=== PATIENT | female | born 1950 | race Caucasian/White ===

== ENCOUNTER → 2017-05-28 | Outpatient (CLI) | payer MEDICARE, OTHER ==
--- NOTE | 2017-05-28 11:17 | Diagnostic Imaging Report ---
INDICATION: History of thoracic spine fracture for screening. FINDINGS: There is osteoporotic density in the lumbar spine with an abnormally diminished T score value of -0.5. Osteoporotic densities in the bilateral hips are present, both -3.3. T score values. IMPRESSION: There is extensive osteoporosis with a significant increased fracture risk in this patient. Treatment and followup advised. Dictated by: Dictated on workstation # [id number]
== END ==
LOC: RAD 09:30
PROVIDERS: ATTEND Family Medicine
DX: M81.0 Age-related osteoporosis without current pathological fracture (principal); Z87.81 Personal history of (healed) traumatic fracture
CPT/HCPCS: 77080

== ENCOUNTER → 2017-06-15 | Outpatient (CLI) | payer MEDICARE, OTHER ==
--- NOTE | 2017-06-15 13:35 | Diagnostic Imaging Report ---
INDICATION: Back pain. FINDINGS: There is an age indeterminate compression fracture in the mid to upper thoracic spine. Endplates appear relatively sclerotic suggesting this is chronic. A few other mild compression fractures, also age indeterminate. The visualized lungs are clear. IMPRESSION: Several age-indeterminate compression fractures in the thoracic spine. If there is high clinical concern, these may be acute. Further evaluation with MRI should be considered. Dictated by: Dictated on workstation # [id number]
--- NOTE | 2017-06-15 13:55 | Diagnostic Imaging Report ---
Indication: Right-sided rib pain. Time of exam: 1:22 PM 2 views of right-sided ribs were obtained. No displaced rib fracture is detected. No parenchymal contusion, effusion or pneumothorax is identified. Impression: No acute feature identified. Dictated by: Dictated on workstation # [id number]
== END ==
LOC: RAD 12:49
PROVIDERS: ATTEND Nurse Practitioner Family
DX: R07.81 Pleurodynia (principal); M54.9 Dorsalgia, unspecified
CPT/HCPCS: 71100; 72070

== ENCOUNTER 2018-05-16 07:05 | Observation (INO) | payer MEDICARE ==
[~2018-05-16] VITALS: Ht 167.6 cm; Wt 58.2 kg
--- OUTSIDE RECORDS SUMMARY | 2018-05-16 07:10 | XMS REPORT ---
Author Author RESHMA DUARTE Organization [facility] Address [address] [place] [address] Care Team Providers Care Recreational Therapy Aide Name Role Phone RESHMA DUARTE Unavailable PROBLEMS Type Condition ICD9-CM Code EAI49-OY Code Onset Dates Condition Status SNOMED Code Problem Hyperlipidemia E78.5 Active 12655748 Problem Vitamin D deficiency E55.9 Active 19171987 Problem Closed fracture of fourth thoracic vertebra, unspecified fracture morphology, initial encounter S22.049A Active 57988886837619211 Problem Essential hypertension I10 Active 73086224 Problem Gastroesophageal reflux disease, esophagitis presence not specified K21.9 Active 358263741 Problem Age-related osteoporosis without current pathological fracture M81.0 Active 10571512 ALLERGIES Substance Reaction Event Type Date Status TraMADol HCl ER nausea Drug Allergy Jan, Active Fosamax throat swelling/trouble swallowing Drug Allergy Jan, Active ENCOUNTERS Encounter Location Date Diagnosis [facility] [address] [address] 2018 Compression fracture of body of thoracic vertebra S22.000A [facility] [id number] [place] [address]13- [address] 11 Jan, 2018 Essential hypertension I10 ; Age-related osteoporosis without current pathological fracture M81.0 ; Gastroesophageal reflux disease, esophagitis presence not specified K21.9 ; Hyperlipidemia E78.5 ; Vitamin D deficiency E55.9 and Compression fracture of body of thoracic vertebra S22.000A [facility] [address] [address] Dec, Essential hypertension I10 [facility] [id number] [place] [address] 20730- 4230 Dec, [facility] [address] [id number] Oct, Encounter for dental examination Z01.20 [facility] [id number] [place] [address] 91129- 1684 Oct, [facility] [id number] [place] [address] 76683- 6780 Oct, Irritant contact dermatitis, unspecified trigger L24.9 [facility] [address] [address] Aug, Irritant contact dermatitis, unspecified trigger L24.9 ; Age -related osteoporosis with current pathological fracture with routine healing, subsequent encounter M80.00XD and Gastroesophageal reflux disease, esophagitis presence not specified K21.9 [facility] [id number] [place] [address] 55587- 1092 Jul, Other fatigue R53.83 ; Age-related osteoporosis without current pathological fracture M81.0 and Vitamin D deficiency E55.9 [facility] [address] [place] [address] 60373- 9768 Jul, Other fatigue R53.83 ; Age-related osteoporosis without current pathological fracture M81.0 and Vitamin D deficiency E55.9 [facility] [address] [place] [address] 10767- 8627 Jun, Age-related osteoporosis without current pathological fracture M81.0 [facility] [id number] [place] [address] 02038- 2105 May, Age-related osteoporosis without current pathological fracture M81.0 [facility] [id number] [place] [address] 16116- 9157 May, [facility] [id number] [place] [address] 36213- 7238 May, Closed fracture of fourth thoracic vertebra, unspecified fracture morphology, initial encounter S22.049A [facility] [address] 16455- 6298 May, Acute bilateral thoracic back pain M54.6 [facility] [address] [address] Apr, Acute bilateral thoracic back pain M54.6 [facility] [address] [address] Aug, Essential hypertension I10 and Fatigue, unspecified type R53.83 [facility] [address] [address] Aug, [facility] [address] [address] Jul, [facility] [id number] [place] [id number] Aug, Dental examination Z01.20 [facility] [id number] [place] [id number] Jul, Encounter for dental examination Z01.20 IMMUNIZATIONS No Known Immunizations SOCIAL HISTORY Never Assessed REASON FOR VISIT Blood Pressure fu -- michael hoff PLAN OF CARE Activity Details Follow Up 3 Months with Kermit stokes Reason: Future/Pending Procedure ROUTINE VENIPUNCTURE VITAL SIGNS Height 67 in 2018-01-26 Weight 120.0 lbs 2018-01-26 Temperature 97.2 degrees Fahrenheit 2018-01-26 Heart Rate 86 bpm 2018-01-26 Respiratory Rate 20 2018-01-26 BMI 18.79 kg/m2 2018-01-26 Blood pressure systolic 130 mmHg 2018-01-26 Blood pressure diastolic 88 mmHg 2018-01-26 MEDICATIONS Medication Instructions Dosage Frequency Start Date End Date Duration Status Calcium + D3 Active Aspirin Active Hydrocodone-Acetaminophen 5-325 MG Orally every 6 hrs 1 tablet as needed 6h 11 Jan, 2018 Active Triamcinolone Acetonide 0.1 % Externally Twice a day 1 application to affected area 12h 18 Aug, 2017 14 days Active Forteo Active Vitamin D Active Protonix 20 mg Orally Once a day 1 tablet 24h 30 Active RESULTS No Results PROCEDURES Procedure Date Ordered Result Body Site LAB NOT BILLED BY [facility] Jan 26, 2018 VENIPUNCT, ROUTINE* Jan 26, 2018 INSTRUCTIONS MEDICATIONS ADMINISTERED No Known Medications MEDICAL (GENERAL) HISTORY Type Description Date Medical History hypertension Medical History Hemangioma on Liver- Previously been on Creon rx'd by Dr Harrison Medical History Hx of MRSA Surgical History cholecystectomy 2008 Surgical History Open reduction of left hand fracture- metal plate and screws placed 2009 Surgical History Open reduction of right leg fracture 1987 Hospitalization History Surgery(s)/Childbirth(s) only
--- OUTSIDE RECORDS SUMMARY | 2018-05-16 07:10 | XMS REPORT ---
Author Author JIE BAARJAS [facility] Address [address] [place] [address] Care Team Providers Care Plate Finisher Name Role Phone JIE BARAJAS Unavailable PROBLEMS Type Condition ICD9-CM Code GMY45-XN Code Onset Dates Condition Status SNOMED Code Problem Vitamin D deficiency E55.9 Active 30192606 Problem Gastroesophageal reflux disease, esophagitis presence not specified K21.9 Active 136644281 Problem Essential hypertension I10 Active 46640379 Problem Age-related osteoporosis without current pathological fracture M81.0 Active 40053655 Problem Closed fracture of fourth thoracic vertebra, unspecified fracture morphology, initial encounter S22.049A Active 99020588418366347 ALLERGIES Substance Reaction Event Type Date Status TraMADol HCl ER nausea Drug Allergy Oct, Active Fosamax throat swelling/trouble swallowing Drug Allergy Oct, Active ENCOUNTERS Encounter Location Date Diagnosis [facility] [id number] [place] [address]60- [address]447 Jan, [facility] [id number] [place] [address] 21918- 8845 Dec, Essential hypertension I10 [facility] [id number] [place] [address] 28418- 9294 Dec, [facility] [id number] [place] [phone] Oct, Encounter for dental examination Z01.20 [facility] [id number] [place] [address] 41302- 6103 Oct, [facility] [id number] [place] [address] 51561- 8386 Oct, Irritant contact dermatitis, unspecified trigger L24.9 [facility] [address] [address] Aug, Irritant contact dermatitis, unspecified trigger L24.9 ; Age -related osteoporosis with current pathological fracture with routine healing, subsequent encounter M80.00XD and Gastroesophageal reflux disease, esophagitis presence not specified K21.9 [facility] [id number] [place] [address] 88483- 4340 Jul, Other fatigue R53.83 ; Age-related osteoporosis without current pathological fracture M81.0 and Vitamin D deficiency E55.9 [facility] [id number] [place] [address] 13132- 1483 Jul, Other fatigue R53.83 ; Age-related osteoporosis without current pathological fracture M81.0 and Vitamin D deficiency E55.9 [facility] [id number] [place] [address] 74710- 7043 Jun, Age-related osteoporosis without current pathological fracture M81.0 [facility] [id number] [place] [address] 57477- 3660 May, Age-related osteoporosis without current pathological fracture M81.0 [facility] [id number] [place] [address] 01267- 9714 May, [facility] [address] [address] May, Closed fracture of fourth thoracic vertebra, unspecified fracture morphology, initial encounter S22.049A [facility] [id number] [place] [address] 83425- 6640 May, Acute bilateral thoracic back pain M54.6 [facility] [id number] [place] [address] 07715 -3388 Apr, Acute bilateral thoracic back pain M54.6 [facility] [address] 47048- 38[address] Aug, Essential hypertension I10 and Fatigue, unspecified type R53.83 [facility] [address] 284[address]- 0747 Aug, [facility] [address] [id number] [place] [address] Jul, [facility] [address] [id number] [id number] Aug, Dental examination Z01.20 [facility] [address] [id number] [place] [id number] Jul, Encounter for dental examination Z01.20 IMMUNIZATIONS No Known Immunizations SOCIAL HISTORY Never Assessed REASON FOR VISIT prophy PLAN OF CARE Activity Details Follow Up 6 Months Reason:Recall VITAL SIGNS Blood pressure systolic 144 mmHg 2017-11-10 Blood pressure diastolic 99 mmHg 2017-11-10 MEDICATIONS Medication Instructions Dosage Frequency Start Date End Date Duration Status Protonix 20 mg Orally Once a day 1 tablet 24h 30 Active Excedrin Migraine 250-250-65 MG Orally every 6 hrs 2 tablets as needed 6h Not-Taking Calcium + D3 Active Triamcinolone Acetonide 0.1 % Externally Twice a day 1 application to affected area 12h 18 Aug, 2017 14 days Active Forteo Active Aspirin Active Vitamin D Active Probiotic 3 tabs Active Omeprazole Active Nexium 20 MG Orally Once a day 1 capsule 24h Not-Taking RESULTS No Results PROCEDURES Procedure Date Ordered Result Body Site PERIODIC ORAL EXAMINATION November 10, 2017 PROPHYLAXIS - ADULT November 10, 2017 TOPICAL FLUORIDE VARNISH November 10, 2017 INSTRUCTIONS MEDICATIONS ADMINISTERED No Known Medications MEDICAL [...]
--- OUTSIDE RECORDS SUMMARY | 2018-05-16 07:10 | XMS REPORT ---
Author Author RESHMA DUARTE Organization [facility] Address [address] [place] [address] Care Team Providers Care Sixth Grade Teacher Name Role Phone RESHMA DUARTE Unavailable PROBLEMS Type Condition ICD9-CM Code ERC09-TA Code Onset Dates Condition Status SNOMED Code Problem Hyperlipidemia E78.5 Active 17423697 Problem Vitamin D deficiency E55.9 Active 61748728 Problem Closed fracture of fourth thoracic vertebra, unspecified fracture morphology, initial encounter S22.049A Active 75029439713713050 Problem Essential hypertension I10 Active 34857587 Problem Gastroesophageal reflux disease, esophagitis presence not specified K21.9 Active 134067553 Problem Age-related osteoporosis without current pathological fracture M81.0 Active 12152966 ALLERGIES No Information ENCOUNTERS Encounter Location Date Diagnosis [facility] [id number] [place] [address]53- [address]160 2018 Compression fracture of body of thoracic vertebra S22.000A [facility] [address] [address]- [address] 11 Jan, 2018 Essential hypertension I10 ; Age-related osteoporosis without current pathological fracture M81.0 ; Gastroesophageal reflux disease, esophagitis presence not specified K21.9 ; Hyperlipidemia E78.5 ; Vitamin D deficiency E55.9 and Compression fracture of body of thoracic vertebra S22.000A [facility] [id number] [place] [address] 65650- 7938 Dec, Essential hypertension I10 [facility] [address] [address] Dec, [facility] [id number] [place] [phone] Oct, Encounter for dental examination Z01.20 [facility] [address] [place] [address] 6[address] Oct, [facility] [id number] [place] [address] 69768- 3901 Oct, Irritant contact dermatitis, unspecified trigger L24.9 [facility] [id number] [place] [address] 86162- 9668 Aug, Irritant contact dermatitis, unspecified trigger L24.9 ; Age -related osteoporosis with current pathological fracture with routine healing, subsequent encounter M80.00XD and Gastroesophageal reflux disease, esophagitis presence not specified K21.9 [facility] [address] [address]- [address] Jul, Other fatigue R53.83 ; Age-related osteoporosis without current pathological fracture M81.0 and Vitamin D deficiency E55.9 [facility] [id number] [place] [address] 53076- 1799 Jul, Other fatigue R53.83 ; Age-related osteoporosis without current pathological fracture M81.0 and Vitamin D deficiency E55.9 [facility] [id number] [place] [address] 84322- 6742 Jun, Age-related osteoporosis without current pathological fracture M81.0 [facility] [id number] [place] [address] 07754- 7714 May, Age-related osteoporosis without current pathological fracture M81.0 [facility] [id number] [place] [address] 73746- 9275 May, [facility] [id number] [place] [address] 70909- 0603 May, Closed fracture of fourth thoracic vertebra, unspecified fracture morphology, initial encounter S22.049A [place] [address] 45390- 1272 May, Acute bilateral thoracic back pain M54.6 [facility] [id number] [place] [address] 78765 -8766 Apr, Acute bilateral thoracic back pain M54.6 [facility] [address], [place] [address] Aug, Essential hypertension I10 and Fatigue, unspecified type R53.83 [facility] [address], [place] [address] 2546 Aug, [facility] [address] [place] [address] 92808- [address]77 Jul, [facility] [address] [id number] Aug, Dental examination Z01.20 [facility] [id number] [place] [id number] Jul, Encounter for dental examination Z01.20 IMMUNIZATIONS No Known Immunizations SOCIAL HISTORY Never Assessed REASON FOR VISIT Requests return call PLAN OF CARE VITAL SIGNS MEDICATIONS Unknown Medications RESULTS No Results PROCEDURES No Known procedures INSTRUCTIONS MEDICATIONS ADMINISTERED No Known Medications MEDICAL (GENERAL) HISTORY Type Description Date Medical History hypertension Medical History Hemangioma on Liver- Previously been on Creon rx'd by Dr Harrison Medical History Hx of MRSA Surgical History cholecystectomy 2008 Surgical History Open reduction of left hand fracture- metal plate and screws placed 2009 Surgical History Open reduction of right leg fracture 1988 Hospitalization History Surgery(s)/Childbirth(s) only
--- OUTSIDE RECORDS SUMMARY | 2018-05-16 07:10 | XMS REPORT ---
Author Author RESHMA DUARTE Organization [facility] Address [address] [place] [address] Care Team Providers Care District Sales Leader Name Role Phone RESHMA DUARTE Unavailable PROBLEMS Type Condition ICD9-CM Code XPP85-MP Code Onset Dates Condition Status SNOMED Code Problem Hyperlipidemia E78.5 Active 28876603 Problem Vitamin D deficiency E55.9 Active 12403131 Problem Closed fracture of fourth thoracic vertebra, unspecified fracture morphology, initial encounter S22.049A Active 12013640133884367 Problem Essential hypertension I10 Active 38724056 Problem Gastroesophageal reflux disease, esophagitis presence not specified K21.9 Active 094460519 Problem Age-related osteoporosis without current pathological fracture M81.0 Active 25482581 ALLERGIES No Information ENCOUNTERS Encounter Location Date Diagnosis [facility] [id number] [place] [address] 85242- 1676 2018 Compression fracture of body of thoracic vertebra S22.000A [facility] [address] [address]- [address] 11 Jan, 2018 Essential hypertension I10 ; Age-related osteoporosis without current pathological fracture M81.0 ; Gastroesophageal reflux disease, esophagitis presence not specified K21.9 ; Hyperlipidemia E78.5 ; Vitamin D deficiency E55.9 and Compression fracture of body of thoracic vertebra S22.000A [facility] [id number] [place] [address] 36621- 6540 Dec, Essential hypertension I10 [facility] [address] 295[address]- 9[address] Dec, [facility] [id number] [place] [phone] Oct, Encounter for dental examination Z01.20 [facility] [address] [place] [address] Oct, [facility] [id number] [place] [address] 59555- 2973 Oct, Irritant contact dermatitis, unspecified trigger L24.9 [facility] [id number] [place] [address] 38213- 3488 Aug, Irritant contact dermatitis, unspecified trigger L24.9 ; Age -related osteoporosis with current pathological fracture with routine healing, subsequent encounter M80.00XD and Gastroesophageal reflux disease, esophagitis presence not specified K21.9 [place] [address] 80119- 9543 Jul, Other fatigue R53.83 ; Age-related osteoporosis without current pathological fracture M81.0 and Vitamin D deficiency E55.9 [facility] [facility] [id number] [place] [address]34- 1946 Jul, Other fatigue R53.83 ; Age-related osteoporosis without current pathological fracture M81.0 and Vitamin D deficiency E55.9 [facility] [id number] [place] [address] 00369- 5697 Jun, Age-related osteoporosis without current pathological fracture M81.0 [facility] [id number] [place] [address] 41404- 5643 May, Age-related osteoporosis without current pathological fracture M81.0 [place] [id number] [place] [address] 82666- 7651 May, [facility] [id number] [place] [address] 49560- 4051 May, Closed fracture of fourth thoracic vertebra, unspecified fracture morphology, initial encounter S22.049A [place] [address] 78555- 1413 May, Acute bilateral thoracic back pain M54.6 [facility] [id number] [place] [address] 12104 -3926 Apr, Acute bilateral thoracic back pain M54.6 [facility] [address] [address] Aug, Essential hypertension I10 and Fatigue, unspecified type R53.83 [facility] [address], [place] [address]16 Aug, [facility] [address] [place] [address] 98027- 6368 Jul, [facility] [address] [phone] Aug, Dental examination Z01.20 [facility] [id number] [place] [address] [id number] Jul, Encounter for dental examination Z01.20 IMMUNIZATIONS No Known Immunizations SOCIAL HISTORY Never Assessed REASON FOR VISIT Blood pressure check -- michael hoff PLAN OF CARE VITAL SIGNS Height 67 in 2018-01-13 Blood pressure systolic 142 mmHg 2018-01-13 Blood pressure diastolic 82 mmHg 2018-01-13 MEDICATIONS Unknown Medications RESULTS No Results PROCEDURES [...]
--- OUTSIDE RECORDS SUMMARY | 2018-05-16 07:11 | XMS REPORT ---
Author Author RESHMA DUARTE Organization [facility] Address [address] [place] [address] Care Team Providers Care Camper Assembler Name Role Phone RESHMA DUARTE Unavailable PROBLEMS Type Condition ICD9-CM Code PDQ78-XF Code Onset Dates Condition Status SNOMED Code Problem Vitamin D deficiency E55.9 Active 54598219 Problem Gastroesophageal reflux disease, esophagitis presence not specified K21.9 Active 347234634 Problem Essential hypertension I10 Active 44122582 Problem Age-related osteoporosis without current pathological fracture M81.0 Active 28762987 Problem Closed fracture of fourth thoracic vertebra, unspecified fracture morphology, initial encounter S22.049A Active [id number] ALLERGIES No Information ENCOUNTERS Encounter Location Date Diagnosis [facility] [address] [id number] Oct, Encounter for dental examination Z01.20 [place] [address] [address] Oct, [place] [address] [address] Oct, Irritant contact dermatitis, unspecified trigger L24.9 [place] [address] [place] [id number] [place] [address]66- 2778 Aug, Irritant contact dermatitis, unspecified trigger L24.9 ; Age -related osteoporosis with current pathological fracture with routine healing, subsequent encounter M80.00XD and Gastroesophageal reflux disease, esophagitis presence not specified K21.9 [facility] [address] [address]- [address] Jul, Other fatigue R53.83 ; Age-related osteoporosis without current pathological fracture M81.0 and Vitamin D deficiency E55.9 [place] [address] [place] [address] Jul, Other fatigue R53.83 ; Age-related osteoporosis without current pathological fracture M81.0 and Vitamin D deficiency E55.9 [facility] [address] [place] [id number] [place] [phone] Jun, Age-related osteoporosis without current pathological fracture M81.0 [facility] [address] [address]- 2341 May, Age-related osteoporosis without current pathological fracture M81.0 [place] [address] [address] May, [place] [address] 635747- 7438 May, Closed fracture of fourth thoracic vertebra, unspecified fracture morphology, initial encounter S22.049A [place] [address] 96253- 7623 May, Acute bilateral thoracic back pain M54.6 [facility] [address] [place] [id number] [place] [address]96 Apr, Acute bilateral thoracic back pain M54.6 [facility] [address] [place] [id number] [place] [address] 20761- 9755 Aug, Essential hypertension I10 and Fatigue, unspecified type R53.83 [facility] [address] [place] [id number] [place] [address] 64425- 1361 Aug, [place] [address] [place] [id number] [place] [address] 53154- 8178 Jul, [facility] [address] [id number] Aug, Dental examination Z01.20 [facility] [address] [place] [id number] [place] [address] [id number] Jul, Encounter for dental examination Z01.20 IMMUNIZATIONS No Known Immunizations SOCIAL HISTORY Never Assessed REASON FOR VISIT Refill request PLAN OF CARE VITAL SIGNS MEDICATIONS Unknown [...]
--- OUTSIDE RECORDS SUMMARY | 2018-05-16 07:11 | XMS REPORT ---
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 Name Role Phone RESHMA DUARTE Unavailable PROBLEMS Type Condition ICD9-CM Code PVN38-YK Code Onset Dates Condition Status SNOMED Code Problem Vitamin D deficiency E55.9 Active 73270733 Problem Gastroesophageal reflux disease, esophagitis presence not specified K21.9 Active 600727135 Problem Essential hypertension I10 Active 09615278 Problem Age-related osteoporosis without current pathological fracture M81.0 Active 44173293 Problem Closed fracture of fourth thoracic vertebra, unspecified fracture morphology, initial encounter S22.049A Active [id number] ALLERGIES No Information ENCOUNTERS Encounter Location Date Diagnosis [facility] [address] [id number] Oct, Encounter for dental examination Z01.20 [place] [address] [address]- [address]369 Oct, [place] [address] 7[address]- 7867 Oct, Irritant contact dermatitis, unspecified trigger L24.9 [place] [address] [place] [id number] [place] [address]27- 0988 Aug, Irritant contact dermatitis, unspecified trigger L24.9 ; Age -related osteoporosis with current pathological fracture with routine healing, subsequent encounter M80.00XD and Gastroesophageal reflux disease, esophagitis presence not specified K21.9 [facility] [address] [address]- 4[address] Jul, Other fatigue R53.83 ; Age-related osteoporosis without current pathological fracture M81.0 and Vitamin D deficiency E55.9 [place] [address] [place] [address] 5349 Jul, Other fatigue R53.83 ; Age-related osteoporosis without current pathological fracture M81.0 and Vitamin D deficiency E55.9 [facility] [address] [place] [phone]- 7848 Jun, Age-related osteoporosis without current pathological fracture M81.0 [facility] [address] 6[address]41- 1152 May, Age-related osteoporosis without current pathological fracture M81.0 [place] [address] 97[address]- 4207 May, [place] [address] 085772- 5919 May, Closed fracture of fourth thoracic vertebra, unspecified fracture morphology, initial encounter S22.049A [place] [address] 72[address]- 0718 May, Acute bilateral thoracic back pain M54.6 [facility] [address] [place] [id number] [place] [address]3072 -8926 Apr, Acute bilateral thoracic back pain M54.6 [facility] [address] [place] [id number] [place] [address] 00729- 9971 Aug, Essential hypertension I10 and Fatigue, unspecified type R53.83 [facility] [address] [place] [id number] [place] [address] 13378- 9403 Aug, [facility] [address] [place] [id number] [place] [address] 50042- 1489 Jul, [facility] [address] [id number] Aug, Dental examination Z01.20 [facility] [address] [place] [id number] [place] [address] [phone] Jul, Encounter for dental examination Z01.20 IMMUNIZATIONS No Known Immunizations SOCIAL HISTORY Never Assessed REASON FOR VISIT Lab (walk-in) PLAN OF CARE VITAL SIGNS MEDICATIONS Unknown Medications RESULTS No Results PROCEDURES Procedure Date Ordered Result Body Site ASSAY OF PARATHORMONE August 07, 2017 COMPREHEN METABOLIC PANEL August 07, 2017 ASSAY THYROID STIM HORMONE August 07, 2017 COMPLETE CBC W/AUTO DIFF WBC August 07, 2017 ASSAY OF VITAMIN D August 07, 2017 INSTRUCTIONS MEDICATIONS ADMINISTERED No Known Medications [...]
--- OUTSIDE RECORDS SUMMARY | 2018-05-16 07:11 | XMS REPORT ---
Author Author RESHMA DUARTE Organization [facility] Address [address] [place] [address] Care Team Providers Care Svp Operations Name Role Phone RESHMA DUARTE Unavailable PROBLEMS Type Condition ICD9-CM Code SDC75-SW Code Onset Dates Condition Status SNOMED Code Problem Vitamin D deficiency E55.9 Active 44367318 Problem Gastroesophageal reflux disease, esophagitis presence not specified K21.9 Active 980960173 Problem Essential hypertension I10 Active 35619688 Problem Age-related osteoporosis without current pathological fracture M81.0 Active 78351243 Problem Closed fracture of fourth thoracic vertebra, unspecified fracture morphology, initial encounter S22.049A Active [id number] ALLERGIES Substance Reaction Event Type Date Status TraMADol HCl ER nausea Drug Allergy May, Active ENCOUNTERS Encounter Location Date Diagnosis [facility] [address] [place] [address] [phone] Oct, [place] [address] [address] Oct, [place] [address] [place] [id number] [place] [address] 71198- 9710 Oct, Irritant contact dermatitis, unspecified trigger L24.9 [facility] [place] [address] [place] [id number] [place] [address] 26709- 1516 Aug, Irritant contact dermatitis, unspecified trigger L24.9 ; Age -related osteoporosis with current pathological fracture with routine healing, subsequent encounter M80.00XD and Gastroesophageal reflux disease, esophagitis presence not specified K21.9 [facility] [place] [address] [place] [id number] [place] [address] 70799- 0037 Jul, Other fatigue R53.83 ; Age-related osteoporosis without current pathological fracture M81.0 and Vitamin D deficiency E55.9 [place] [address] [place] [id number] [place] [address] 49560- 1613 Jul, Other fatigue R53.83 ; Age-related osteoporosis without current pathological fracture M81.0 and Vitamin D deficiency E55.9 [facility] [place] [address] [place] [id number] [place] [address] 54031- 1071 Jun, Age-related osteoporosis without current pathological fracture M81.0 [facility] [place] [address] [place] [id number] [place] [address] 68125- 7833 May, Age-related osteoporosis without current pathological fracture M81.0 [place] [address] [place] [id number] [place] [address] 387316- 5206 May, [place] [address] [place] [id number] [place] [address] 856037- 6938 May, Closed fracture of fourth thoracic vertebra, unspecified fracture morphology, initial encounter S22.049A [place] [address] [place] [id number] [place] [address] 45035- 5440 May, Acute bilateral thoracic back pain M54.6 [facility] [address] [place] [id number] [place] [address] 43387 -[phone] Apr, Acute bilateral thoracic back pain M54.6 [facility] [place] [address] [place] [id number] [place] [address] 27001- 2534 Aug, Essential hypertension I10 and Fatigue, unspecified type R53.83 [facility] [place] [address] [place] [id number] [place] [address] 60473- 6295 Aug, [place] [address] [place] [id number] [place] [address] 88261- 7647 Jul, [facility] [address] [place] [id number] [place] [address] [phone] Aug, Dental examination Z01.20 [facility] [address] [place] [id number] [place] [address] [phone] Jul, Encounter for dental examination Z01.20 IMMUNIZATIONS No Known Immunizations SOCIAL HISTORY Never Assessed REASON FOR VISIT Back pain, Was seen in walk in last week for this. No dysuria/frequency/odor to urine. Was given cyclobenzaprine which doesn't touch the pain. Also taking ibuprofen 800mg. This pain started randomly 05/04. Works at [employer]. - WILLY Nuñez PLAN OF CARE Activity Details Follow Up 6-8 Weeks with [facility] if not improving Reason: VITAL SIGNS Height 67 in 2017-05-19 Weight 125 lbs 2017-05-19 Temperature 97.8 degrees Fahrenheit 2017-05-19 Heart Rate 78 bpm 2017-05-19 Respiratory Rate 18 2017-05-19 BMI 19.58 kg/m2 2017-05-19 Blood pressure systolic 142 mmHg 2017-05-19 Blood pressure diastolic 84 mmHg 2017-05-19 MEDICATIONS Medication Instructions Dosage Frequency Start Date End Date Duration Status Probiotic 3 tabs Active Cyclobenzaprine HCl 10 MG Orally Three times a day 1 tablet as needed 8h Apr, May, 5 days Active PredniSONE 50 mg Orally Once a day 1 tablet 24h May, May, 05 days Active Nexium 20 MG Orally Once a day 1 capsule 24h Active Excedrin Migraine 250-250-65 MG Orally every 6 hrs 2 tablets as needed 6h Active RESULTS Name Result Date Reference Range UA LONG DIP (IN HOUSE) 2017-05-19 Lot # [id number] Exp date 01/2018 Clarity clear Color yellow Odor no GLU negative RACHEL negative KET negative SG 1.005 BLO 2+ pH 5.5 Protein negative URO 0.2 NIT negative MARK negative Lot # Exp date Xray : Spine, Thoracic 2 views (IN HOUSE) 2017-05-19 PROCEDURES Procedure Date Ordered Result Body Site X-RAY EXAM OF THORACIC SPINE May 19, 2017 URINALYSIS, AUTO, W/O SCOPE May 19, 2017 INSTRUCTIONS MEDICATIONS ADMINISTERED No Known Medications [...]
--- OUTSIDE RECORDS SUMMARY | 2018-05-16 07:11 | XMS REPORT ---
Author Author RESHMA DUARTE Organization [facility] Address [address] [place] [address] Care Team Providers Care Window Covering Sales Consultant Name Role Phone RESHMA DUARTE Unavailable PROBLEMS Type Condition ICD9-CM Code NMW42-ZQ Code Onset Dates Condition Status SNOMED Code Problem Vitamin D deficiency E55.9 Active 88120967 Problem Gastroesophageal reflux disease, esophagitis presence not specified K21.9 Active 732790029 Problem Essential hypertension I10 Active 18096128 Problem Age-related osteoporosis without current pathological fracture M81.0 Active 81529324 Problem Closed fracture of fourth thoracic vertebra, unspecified fracture morphology, initial encounter S22.049A Active [id number] ALLERGIES No Information ENCOUNTERS Encounter Location Date Diagnosis [facility] [address] [id number] Oct, [facility] [address] [address]- [address]85 Oct, [facility] [address] 42531- 7335 Oct, Irritant contact dermatitis, unspecified trigger L24.9 [facility] [address] 74398- 6701 Aug, Irritant contact dermatitis, unspecified trigger L24.9 ; Age -related osteoporosis with current pathological fracture with routine healing, subsequent encounter M80.00XD and Gastroesophageal reflux disease, esophagitis presence not specified K21.9 [facility] [address] [address]- 7915 Jul, Other fatigue R53.83 ; Age-related osteoporosis without current pathological fracture M81.0 and Vitamin D deficiency E55.9 [facility] [address] 09618- 7853 Jul, Other fatigue R53.83 ; Age-related osteoporosis without current pathological fracture M81.0 and Vitamin D deficiency E55.9 [facility] [address] 27588- 719 Jun, Age-related osteoporosis without current pathological fracture M81.0 [place] [address] 9[address]39- 5232 May, Age-related osteoporosis without current pathological fracture M81.0 [place] [address] 20865- 6012 May, [place] [address] 23894- 3115 May, Closed fracture of fourth thoracic vertebra, unspecified fracture morphology, initial encounter S22.049A [place] [address] 44318- 7935 May, Acute bilateral thoracic back pain M54.6 [facility] [address] [address] -[address]11 Apr, Acute bilateral thoracic back pain M54.6 [facility] [address] 19713- 9922 Aug, Essential hypertension I10 and Fatigue, unspecified type R53.83 [place] [address] 00660- 0551 Aug, [place] [address] 18882- 1079 Jul, [facility] [address] [id number] Aug, Dental examination Z01.20 [facility] [address] [id number] Jul, Encounter for dental examination Z01.20 IMMUNIZATIONS No Known Immunizations SOCIAL HISTORY Never Assessed REASON FOR VISIT requesting a returned call PLAN OF CARE VITAL SIGNS MEDICATIONS [...]
--- OUTSIDE RECORDS SUMMARY | 2018-05-16 07:11 | XMS REPORT ---
Author Author RESHMA DUARTE Organization [facility] Address [address] [place] [address] Care Team Providers Care Gasket Maker Name Role Phone RESHMA DUARTE Unavailable PROBLEMS Type Condition ICD9-CM Code OTL64-JR Code Onset Dates Condition Status SNOMED Code Problem Vitamin D deficiency E55.9 Active 67468617 Problem Gastroesophageal reflux disease, esophagitis presence not specified K21.9 Active 249645871 Problem Essential hypertension I10 Active 18502111 Problem Age-related osteoporosis without current pathological fracture M81.0 Active 76932599 Problem Closed fracture of fourth thoracic vertebra, unspecified fracture morphology, initial encounter S22.049A Active [id number] ALLERGIES No Information ENCOUNTERS Encounter Location Date Diagnosis [facility] [address] [id number] Oct, Encounter for dental examination Z01.20 [place] [address] [address]- [address]779 Oct, [place] [address] 87860- 1388 Oct, Irritant contact dermatitis, unspecified trigger L24.9 [place] [address] [place] [id number] [place] [address] 26816- 1636 Aug, Irritant contact dermatitis, unspecified trigger L24.9 ; Age -related osteoporosis with current pathological fracture with routine healing, subsequent encounter M80.00XD and Gastroesophageal reflux disease, esophagitis presence not specified K21.9 [facility] [address] 8[address]34- 4388 Jul, Other fatigue R53.83 ; Age-related osteoporosis without current pathological fracture M81.0 and Vitamin D deficiency E55.9 [place] [address] [place] [address]- 5683 Jul, Other fatigue R53.83 ; Age-related osteoporosis without current pathological fracture M81.0 and Vitamin D deficiency E55.9 [facility] [address] [place] [id number]- 4857 Jun, Age-related osteoporosis without current pathological fracture M81.0 [facility] [address] 89479- 3261 May, Age-related osteoporosis without current pathological fracture M81.0 [place] [address] 24005- 1379 May, [place] [address] 057611- 2544 May, Closed fracture of fourth thoracic vertebra, unspecified fracture morphology, initial encounter S22.049A [place] [address] [address]- 1974 May, Acute bilateral thoracic back pain M54.6 [facility] [address] [place] [id number] [place] [address] 81621 -4053 Apr, Acute bilateral thoracic back pain M54.6 [facility] [address] [place] [id number] [place] [address] 02051- 8249 Aug, Essential hypertension I10 and Fatigue, unspecified type R53.83 [facility] [address] [place] [id number] [place] [address] 50706- 0209 Aug, [place] [address] [place] [id number] [place] [address] 94790- 8440 Jul, [facility] [address] [id number] Aug, Dental examination Z01.20 [facility] [address] [place] [id number] [place] [address] [phone] Jul, Encounter for dental examination Z01.20 IMMUNIZATIONS No Known Immunizations SOCIAL HISTORY Never Assessed REASON FOR VISIT labs PLAN OF CARE VITAL SIGNS MEDICATIONS Unknown [...]
--- OUTSIDE RECORDS SUMMARY | 2018-05-16 07:11 | XMS REPORT ---
Author Author RESHMA DUARTE Organization [facility] Address [address] [place] [address] Care Team Providers Care Suppression Crew Leader Name Role Phone RESHMA DUARTE Unavailable PROBLEMS Type Condition ICD9-CM Code ZDT92-JP Code Onset Dates Condition Status SNOMED Code Problem Vitamin D deficiency E55.9 Active 21523253 Problem Gastroesophageal reflux disease, esophagitis presence not specified K21.9 Active 867053752 Problem Essential hypertension I10 Active 76599914 Problem Age-related osteoporosis without current pathological fracture M81.0 Active 49250417 Problem Closed fracture of fourth thoracic vertebra, unspecified fracture morphology, initial encounter S22.049A Active [id number] ALLERGIES No Information ENCOUNTERS Encounter Location Date Diagnosis [facility] [address] [phone] Oct, [facility] [address] [address]- 1489 Oct, [facility] [address] 65949- 7824 Oct, Irritant contact dermatitis, unspecified trigger L24.9 [facility] [address] 13029- 6428 Aug, Irritant contact dermatitis, unspecified trigger L24.9 ; Age -related osteoporosis with current pathological fracture with routine healing, subsequent encounter M80.00XD and Gastroesophageal reflux disease, esophagitis presence not specified K21.9 [facility] [address] 56303- 7869 Jul, Other fatigue R53.83 ; Age-related osteoporosis without current pathological fracture M81.0 and Vitamin D deficiency E55.9 [facility] [address] 81601- 7082 Jul, Other fatigue R53.83 ; Age-related osteoporosis without current pathological fracture M81.0 and Vitamin D deficiency E55.9 [facility] [address] 49705- 334 Jun, Age-related osteoporosis without current pathological fracture M81.0 [place] [address] 07555- 7611 May, Age-related osteoporosis without current pathological fracture M81.0 [place] [address] 69883- 8384 May, [place] [address] 59020- 2636 May, Closed fracture of fourth thoracic vertebra, unspecified fracture morphology, initial encounter S22.049A [place] [address] 69587- 2654 May, Acute bilateral thoracic back pain M54.6 [facility] [address] 83826 -4081 Apr, Acute bilateral thoracic back pain M54.6 [facility] [address] 72736- 4370 Aug, Essential hypertension I10 and Fatigue, unspecified type R53.83 [place] [address] [place] [id number] [place] [address] 40138- 1941 Aug, [place] [address] 44555- 3861 Jul, [facility] [address] [place] [id number] [place] [address] [id number] Aug, Dental examination Z01.20 [facility] [address] [place] [id number] [place] [address] [phone] Jul, Encounter for dental examination Z01.20 IMMUNIZATIONS No Known Immunizations SOCIAL HISTORY Never Assessed REASON FOR VISIT dexa scan PLAN OF CARE VITAL SIGNS MEDICATIONS Unknown Medications RESULTS Name Result Date Reference Range DEXA 2017-05-28 PROCEDURES No Known procedures INSTRUCTIONS MEDICATIONS ADMINISTERED [...]
--- OUTSIDE RECORDS SUMMARY | 2018-05-16 07:11 | XMS REPORT ---
Author Author RESHMA DUARTE Organization [facility] Address [address] [place] [address] Care Team Providers Care Wound/Ostomy Clinical Nurse Specialist Name Role Phone RESHMA DUARTE Unavailable PROBLEMS Type Condition ICD9-CM Code MFZ53-WO Code Onset Dates Condition Status SNOMED Code Problem Vitamin D deficiency E55.9 Active 87393433 Problem Gastroesophageal reflux disease, esophagitis presence not specified K21.9 Active 389249050 Problem Essential hypertension I10 Active 65710417 Problem Age-related osteoporosis without current pathological fracture M81.0 Active 52533359 Problem Closed fracture of fourth thoracic vertebra, unspecified fracture morphology, initial encounter S22.049A Active [id number] ALLERGIES Substance Reaction Event Type Date Status TraMADol HCl ER nausea Drug Allergy May, Active ENCOUNTERS Encounter Location Date Diagnosis [facility] [address] [place] [address] [phone] Oct, Encounter for dental examination Z01.20 [facility] [id number] [place] [address] 55681- 7874 Oct, [facility] [id number] [place] [address] 48207- 8952 Oct, Irritant contact dermatitis, unspecified trigger L24.9 [facility] [id number] [place] [address] 75051- 9671 Aug, Irritant contact dermatitis, unspecified trigger L24.9 ; Age -related osteoporosis with current pathological fracture with routine healing, subsequent encounter M80.00XD and Gastroesophageal reflux disease, esophagitis presence not specified K21.9 [facility] [address] [place] [address] 12691- 4574 Jul, Other fatigue R53.83 ; Age-related osteoporosis without current pathological fracture M81.0 and Vitamin D deficiency E55.9 [facility] [id number] [place] [address] 80344- 4171 Jul, Other fatigue R53.83 ; Age-related osteoporosis without current pathological fracture M81.0 and Vitamin D deficiency E55.9 [facility] [id number] [place] [address] 35060- 5243 Jun, Age-related osteoporosis without current pathological fracture M81.0 [facility] [id number] [place] [address] 37044- 3740 May, Age-related osteoporosis without current pathological fracture M81.0 [place] [address] 205132- 7216 May, [place] [address] 63088- 0694 May, Closed fracture of fourth thoracic vertebra, unspecified fracture morphology, initial encounter S22.049A [facility] [id number] [place] [address] 95279- 6562 May, Acute bilateral thoracic back pain M54.6 [facility] [address] 49179 -4556 Apr, Acute bilateral thoracic back pain M54.6 [facility] [id number] [place] [address] 81246- 5428 Aug, Essential hypertension I10 and Fatigue, unspecified type R53.83 [facility] [id number] [place] [address] 50781- 4958 Aug, [facility] [id number] [place] [address] 14797- 1215 Jul, [facility] [address] [id number] Aug, Dental examination Z01.20 [facility] [id number] [place] [address] [phone] Jul, Encounter for dental examination Z01.20 IMMUNIZATIONS No Known Immunizations SOCIAL HISTORY Never Assessed REASON FOR VISIT Dexa scan f/u=-- michael hoff PLAN OF CARE Activity Details Follow Up 3 Months with Kermit f/u backpahuy Reason: VITAL SIGNS Height 67 in 2017-06-08 Weight 121.6 lbs 2017-06-08 Temperature 97.0 degrees Fahrenheit 2017-06-08 BMI 19.04 kg/m2 2017-06-08 Blood pressure systolic 126 mmHg 2017-06-08 Blood pressure diastolic 72 mmHg 2017-06-08 MEDICATIONS Medication Instructions Dosage Frequency Start Date End Date Duration Status Probiotic 3 tabs Active Nexium 20 MG Orally Once a day 1 capsule 24h Active Alendronate Sodium 10 mg Orally Once a day 1 tablet 24h May, May, 30 day(s) Active Excedrin Migraine 250-250-65 MG Orally every 6 hrs 2 tablets as needed 6h Not-Taking RESULTS No Results PROCEDURES Procedure Date Ordered Result Body Site [facility] VISIT ESTABLISHED PATIENT Jun 08, 2017 INSTRUCTIONS MEDICATIONS ADMINISTERED No Known Medications [...]
--- OUTSIDE RECORDS SUMMARY | 2018-05-16 07:11 | XMS REPORT ---
Author Author RESHMA DUARTE Organization [facility] Address [address] [place] [address] Care Team Providers Care Electronics Technology Instructor Name Role Phone RESHMA DUARTE Unavailable PROBLEMS Type Condition ICD9-CM Code ZMH28-HJ Code Onset Dates Condition Status SNOMED Code Problem Vitamin D deficiency E55.9 Active 28760081 Problem Gastroesophageal reflux disease, esophagitis presence not specified K21.9 Active 323200887 Problem Essential hypertension I10 Active 16793840 Problem Age-related osteoporosis without current pathological fracture M81.0 Active 57700894 Problem Closed fracture of fourth thoracic vertebra, unspecified fracture morphology, initial encounter S22.049A Active [id number] ALLERGIES Substance Reaction Event Type Date Status TraMADol HCl ER nausea Drug Allergy Aug, Active Fosamax throat swelling/trouble swallowing Drug Allergy Aug, Active ENCOUNTERS Encounter Location Date Diagnosis [facility] [address] [place] [address] [phone] Oct, Encounter for dental examination Z01.20 [facility] [id number] [place] [address] 70489- 0088 Oct, [facility] [id number] [place] [address] 47454- 9782 Oct, Irritant contact dermatitis, unspecified trigger L24.9 [facility] [id number] [place] [address] 71752- 2405 Aug, Irritant contact dermatitis, unspecified trigger L24.9 ; Age -related osteoporosis with current pathological fracture with routine healing, subsequent encounter M80.00XD and Gastroesophageal reflux disease, esophagitis presence not specified K21.9 [facility] [id number] [place] [address] 92278- 9164 Jul, Other fatigue R53.83 ; Age-related osteoporosis without current pathological fracture M81.0 and Vitamin D deficiency E55.9 [facility] [id number] [place] [address] 98385- 4906 Jul, Other fatigue R53.83 ; Age-related osteoporosis without current pathological fracture M81.0 and Vitamin D deficiency E55.9 [facility] [id number] [place] [address] 57397- 0476 Jun, Age-related osteoporosis without current pathological fracture M81.0 [facility] [id number] [place] [address] 46990- 3226 May, Age-related osteoporosis without current pathological fracture M81.0 [place] [address] 100080- 6476 May, [facility] [address] 80842- 2411 May, Closed fracture of fourth thoracic vertebra, unspecified fracture morphology, initial encounter S22.049A [facility] [id number] [place] [address] 80884- 2105 May, Acute bilateral thoracic back pain M54.6 [facility] [id number] [place] [address] 74375 -5482 Apr, Acute bilateral thoracic back pain M54.6 [facility] [id number] [place] [address] 10620- 3018 Aug, Essential hypertension I10 and Fatigue, unspecified type R53.83 [facility] [id number] [place] [address] 02966- 4773 Aug, [facility] [address] 96615- 7359 Jul, [facility] [id number] [place] [address] [phone] Aug, Dental examination Z01.20 [facility] [address] [id number] Jul, Encounter for dental examination Z01.20 IMMUNIZATIONS No Known Immunizations SOCIAL HISTORY Never Assessed REASON FOR VISIT Pt had flu and her coughing resulted in increased back pain.Taking Aspirin for pain as she prefers it over Tylenol-states her surgeon advised against NSAIDS. Pt requesting protonix prescription due to financial situation. Reaction to Vitamin D intake. mara, Alecia scheduled for Medicare AWV PLAN OF CARE Activity Details Follow Up 3 Months with Kermit prcie pain Reason: VITAL SIGNS Height 67 in 2017-09-02 Weight 114.3 lbs 2017-09-02 Temperature 97.8 degrees Fahrenheit 2017-09-02 Heart Rate 82 bpm 2017-09-02 Respiratory Rate 18 2017-09-02 BMI 17.90 kg/m2 2017-09-02 Blood pressure systolic 146 mmHg 2017-09-02 Blood pressure diastolic 88 mmHg 2017-09-02 MEDICATIONS Medication Instructions Dosage Frequency Start Date End Date Duration Status Aspirin Active Vitamin D Active Omeprazole Active Triamcinolone Acetonide 0.1 % Externally Twice a day 1 application to affected area 12h Aug, 14 days Active Excedrin Migraine 250-250-65 MG Orally every 6 hrs 2 tablets as needed 6h Not-Taking Nexium 20 MG Orally Once a day 1 capsule 24h Active Protonix 20 mg Orally Once a day 1 tablet 24h Aug, 30 day(s) Active Probiotic 3 tabs Active RESULTS No Results PROCEDURES No Known procedures [...]
--- OUTSIDE RECORDS SUMMARY | 2018-05-16 07:11 | XMS REPORT ---
Author Author RESHMA DUARTE Organization [facility] Address [address] [place] [address] Care Team Providers Care Reconciliation Specialist Name Role Phone RESHMA DUARTE Unavailable PROBLEMS Type Condition ICD9-CM Code KGI21-TQ Code Onset Dates Condition Status SNOMED Code Problem Vitamin D deficiency E55.9 Active 75517910 Problem Gastroesophageal reflux disease, esophagitis presence not specified K21.9 Active 499871398 Problem Essential hypertension I10 Active 70992585 Problem Age-related osteoporosis without current pathological fracture M81.0 Active 14994184 Problem Closed fracture of fourth thoracic vertebra, unspecified fracture morphology, initial encounter S22.049A Active [id number] ALLERGIES Substance Reaction Event Type Date Status TraMADol HCl ER nausea Drug Allergy Jun, Active Fosamax throat swelling/trouble swallowing Drug Allergy Jun, Active ENCOUNTERS Encounter Location Date Diagnosis [facility] [address] [id number] Oct, Encounter for dental examination Z01.20 [facility] [address] [place] [address] 20629- 6859 Oct, [facility] [id number] [place] [address] 17608- 6266 Oct, Irritant contact dermatitis, unspecified trigger L24.9 [facility] [address] [place] [address] 02704- 6353 Aug, Irritant contact dermatitis, unspecified trigger L24.9 ; Age -related osteoporosis with current pathological fracture with routine healing, subsequent encounter M80.00XD and Gastroesophageal reflux disease, esophagitis presence not specified K21.9 [facility] [id number] [place] [address] 05907- 9720 Jul, Other fatigue R53.83 ; Age-related osteoporosis without current pathological fracture M81.0 and Vitamin D deficiency E55.9 [facility] [id number] [place] [address] 27739- 1656 Jul, Other fatigue R53.83 ; Age-related osteoporosis without current pathological fracture M81.0 and Vitamin D deficiency E55.9 [facility] [id number] [place] [address] 35633- 8056 Jun, Age-related osteoporosis without current pathological fracture M81.0 [facility] [address] 991999- 4826 May, Age-related osteoporosis without current pathological fracture M81.0 [place] [address] [place] [address] 614937- 9986 May, [facility] [address] 08545- 6402 May, Closed fracture of fourth thoracic vertebra, unspecified fracture morphology, initial encounter S22.049A [facility] [address] 15603- 4930 May, Acute bilateral thoracic back pain M54.6 [facility] [address] 86752 -4804 Apr, Acute bilateral thoracic back pain M54.6 [facility] [id number] [place] [address] 47913- 4367 Aug, Essential hypertension I10 and Fatigue, unspecified type R53.83 [facility] [id number] [place] [address] 52177- 3841 Aug, [facility] [address] 84896- 0004 Jul, [facility] [id number] [place] [address] [phone] Aug, Dental examination Z01.20 [facility] [address] [id number] Jul, Encounter for dental examination Z01.20 IMMUNIZATIONS No Known Immunizations SOCIAL HISTORY Never Assessed REASON FOR VISIT Med question PLAN OF CARE VITAL SIGNS MEDICATIONS Unknown [...]
--- OUTSIDE RECORDS SUMMARY | 2018-05-16 07:11 | XMS REPORT ---
Author Author RESHMA DUARTE Organization [facility] Address [address] [place] [address] Care Team Providers Care Senior Marketing Analyst Name Role Phone RESHMA DUARTE Unavailable PROBLEMS Type Condition ICD9-CM Code JNB04-VB Code Onset Dates Condition Status SNOMED Code Problem Vitamin D deficiency E55.9 Active 28063183 Problem Gastroesophageal reflux disease, esophagitis presence not specified K21.9 Active 521012650 Problem Essential hypertension I10 Active 11690170 Problem Age-related osteoporosis without current pathological fracture M81.0 Active 22452694 Problem Closed fracture of fourth thoracic vertebra, unspecified fracture morphology, initial encounter S22.049A Active [id number] ALLERGIES No Information ENCOUNTERS Encounter Location Date Diagnosis [facility] [address] [id number] Oct, Encounter for dental examination Z01.20 [place] [address] 73654- 9291 Oct, [place] [address] 46555- 5195 Oct, Irritant contact dermatitis, unspecified trigger L24.9 [facility] [id number] [place] [address] 78024- 3364 Aug, Irritant contact dermatitis, unspecified trigger L24.9 ; Age -related osteoporosis with current pathological fracture with routine healing, subsequent encounter M80.00XD and Gastroesophageal reflux disease, esophagitis presence not specified K21.9 [facility] [address] 29675- 4667 Jul, Other fatigue R53.83 ; Age-related osteoporosis without current pathological fracture M81.0 and Vitamin D deficiency E55.9 [place] [address] [place] [address]- 7683 Jul, Other fatigue R53.83 ; Age-related osteoporosis without current pathological fracture M81.0 and Vitamin D deficiency E55.9 [facility] [address] [phone]- 4449 Jun, Age-related osteoporosis without current pathological fracture M81.0 [facility] [address] 86902- 1202 May, Age-related osteoporosis without current pathological fracture M81.0 [place] [address] 42095- 1476 May, [place] [address] 807853- 4103 May, Closed fracture of fourth thoracic vertebra, unspecified fracture morphology, initial encounter S22.049A [place] [address] 18077- 1017 May, Acute bilateral thoracic back pain M54.6 [facility] [id number] [place] [address] 39085 -3817 Apr, Acute bilateral thoracic back pain M54.6 [facility] [id number] [place] [address] 55705- 4613 Aug, Essential hypertension I10 and Fatigue, unspecified type R53.83 [facility] [id number] [place] [address] 80424- 3523 Aug, [place] [id number] [place] [address] 71082- 6320 Jul, [facility] [address] [id number] Aug, Dental examination Z01.20 [facility] [id number] [place] [address] [id number] Jul, Encounter for dental examination Z01.20 IMMUNIZATIONS No Known Immunizations SOCIAL HISTORY Never Assessed REASON FOR VISIT PLAN OF CARE VITAL SIGNS MEDICATIONS Medication Instructions Dosage Frequency Start Date End Date Duration Status Triamcinolone Acetonide 0.1 % Externally Twice a day 1 application to affected area 12h 18 Aug, 2017 14 days Active RESULTS No Results PROCEDURES No Known [...]
--- OUTSIDE RECORDS SUMMARY | 2018-05-16 07:11 | XMS REPORT ---
Author Author KANE NAVAS [facility] Address [address] [place] [address] Care Team Providers Care Mva Still Operator Name Role Phone KANE NAVAS Unavailable PROBLEMS Type Condition ICD9-CM Code XXX25-KW Code Onset Dates Condition Status SNOMED Code Problem Vitamin D deficiency E55.9 Active 66605593 Problem Gastroesophageal reflux disease, esophagitis presence not specified K21.9 Active 036487297 Problem Essential hypertension I10 Active 08457909 Problem Age-related osteoporosis without current pathological fracture M81.0 Active 60942814 Problem Closed fracture of fourth thoracic vertebra, unspecified fracture morphology, initial encounter S22.049A Active [id number] ALLERGIES Substance Reaction Event Type Date Status TraMADol HCl ER nausea Drug Allergy Apr, Active ENCOUNTERS Encounter Location Date Diagnosis [facility] [address] [id number] Oct, [facility] [id number] [place] [address] 50081- 4149 Oct, [facility] [id number] [place] [address] 09154- 6761 Oct, Irritant contact dermatitis, unspecified trigger L24.9 [facility] [id number] [place] [address] 20138- 5919 Aug, Irritant contact dermatitis, unspecified trigger L24.9 ; Age -related osteoporosis with current pathological fracture with routine healing, subsequent encounter M80.00XD and Gastroesophageal reflux disease, esophagitis presence not specified K21.9 [facility] [id number] [place] [address] 81989- 1122 Jul, Other fatigue R53.83 ; Age-related osteoporosis without current pathological fracture M81.0 and Vitamin D deficiency E55.9 [facility] [id number] [place] [address] 12308- 8436 Jul, Other fatigue R53.83 ; Age-related osteoporosis without current pathological fracture M81.0 and Vitamin D deficiency E55.9 [facility] [id number] [place] [address] 94496- 8961 Jun, Age-related osteoporosis without current pathological fracture M81.0 [facility] [id number] [place] [address] 76979- 2622 May, Age-related osteoporosis without current pathological fracture M81.0 [place] [address] 014563- 5656 May, [place] [address] 68562- 9534 May, Closed fracture of fourth thoracic vertebra, unspecified fracture morphology, initial encounter S22.049A [facility] [id number] [place] [address] 43079- 7589 May, Acute bilateral thoracic back pain M54.6 [facility] [address] 82623 -5128 Apr, Acute bilateral thoracic back pain M54.6 [facility] [id number] [place] [address] 46122- 7456 Aug, Essential hypertension I10 and Fatigue, unspecified type R53.83 [facility] [id number] [place] [address] 25567- 5994 Aug, [facility] [id number] [place] [address] 26976- 5145 Jul, [facility] [address] [id number] Aug, Dental examination Z01.20 [facility] [id number] [place] [address] [id number] Jul, Encounter for dental examination Z01.20 IMMUNIZATIONS No Known Immunizations SOCIAL HISTORY Never Assessed REASON FOR VISIT back pain Pt c/o upper back pain for 1 week, states laying flat on her back is about the only position that is not painful. CHUCK Mcgee PLAN OF CARE Activity Details Follow Up prn Reason: VITAL SIGNS Height 67 in 2017-05-13 Weight 122.4 lbs 2017-05-13 Temperature 98.7 degrees Fahrenheit 2017-05-13 Heart Rate 92 bpm 2017-05-13 Respiratory Rate 20 2017-05-13 BMI 19.17 kg/m2 2017-05-13 Blood pressure systolic 156 mmHg 2017-05-13 Blood pressure diastolic 88 mmHg 2017-05-13 MEDICATIONS Medication Instructions Dosage Frequency Start Date End Date Duration Status Probiotic 3 tabs Active Cyclobenzaprine HCl 10 MG Orally Three times a day 1 tablet as needed 8h Apr, May, 5 days Active Excedrin Migraine 250-250-65 MG Orally every 6 hrs 2 tablets as needed 6h Active Nexium 20 MG Orally Once a day 1 capsule 24h Active RESULTS No Results PROCEDURES No Known [...]
--- OUTSIDE RECORDS SUMMARY | 2018-05-16 07:12 | XMS REPORT ---
Author Author ADOLPH EAGLE [facility] Address [address] [place] [address] Care Team Providers Care International Logistics Analyst Name Role Phone ADOLPH EAGLE Unavailable PROBLEMS Type Condition ICD9-CM Code FBL78-DC Code Onset Dates Condition Status SNOMED Code Problem Essential hypertension I10 Active 44818784 ALLERGIES No Information SOCIAL HISTORY Never Assessed PLAN OF CARE VITAL SIGNS Blood pressure systolic 141 mmHg 2016-08-01 Blood pressure diastolic 91 mmHg 2016-08-01 MEDICATIONS No Known Medications RESULTS No Results PROCEDURES No Known procedures IMMUNIZATIONS No Known Immunizations MEDICAL (GENERAL) HISTORY Type Description Date Medical [...]
[2018-05-16 07:35] LABS: BASOPHILS % (AUTO) 1 % (0-10); EOSINOPHILS # (AUTO) 0.1 10^3/uL (0.0-0.3); EOSINOPHILS % (AUTO) 3 % (0-10); HEMATOCRIT 40 % (35-52); HEMOGLOBIN 13.3 G/DL (11.5-16.0); LYMPHOCYTES # (AUTO) 0.7 X 10^3 (1.0-4.0); LYMPHOCYTES % (AUTO) 19 % (12-44); MEAN CORPUSCULAR HEMOGLOBIN 31 PG (25-34); MEAN CORPUSCULAR HGB CONC 33 G/DL (32-36); MEAN CORPUSCULAR VOLUME 93 FL (80-99); MEAN PLATELET VOLUME 9.1 FL (7.4-10.4); MONOCYTES # (AUTO) 0.3 X 10^3 (0.0-1.0); MONOCYTES % (AUTO) 9 % (0-12); NEUTROPHILS # (AUTO) 2.5 X 10^3 (1.8-7.8); NEUTROPHILS % (AUTO) 68 % (42-75); PLATELET COUNT 206 10^3/uL (130-400); RED BLOOD COUNT 4.28 10^6/uL (4.35-5.85); WHITE BLOOD COUNT 3.7 10^3/uL (4.3-11.0)
[2018-05-16 07:44] LABS: FIBRIN DEGRADATION PRODUCTS 0.82 UG/ML (0.00-0.49)
[2018-05-16 07:50] LABS: ALANINE AMINOTRANSFERASE 31 U/L (0-55); ALBUMIN 4.5 GM/DL (3.2-4.5); ALKALINE PHOSPHATASE 76 U/L (40-136); BILIRUBIN,TOTAL 0.3 MG/DL (0.1-1.0); BUN/CREATININE RATIO 20; CALCIUM 10.1 MG/DL (8.5-10.1); CARBON DIOXIDE 23 MMOL/L (21-32); CHLORIDE 103 MMOL/L (98-107); CREATININE SERUM 0.87 MG/DL (0.60-1.30); GFR ESTIMATED > 60; GLUCOSE 104 MG/DL (70-105); SODIUM 140 MMOL/L (135-145); TOTAL PROTEIN 8.1 GM/DL (6.4-8.2)
--- NOTE | 2018-05-16 08:00 | NUR ---
IV INFILTRATED IN CT, IV RESTARTED IN R AC, WHEN STARTING IV, BLISTERY TYPE RASH NOTED IN AC SPACE, R SHOULDER, R FA. PT STATES STARTED YESTERDAY. RASH REPORTED TO DR YANEZ
[2018-05-16] MEDS ORDERED: FLU180SY11 (08:01)
--- NOTE | 2018-05-16 08:02 | ED Neurological Problem ---
General Chief Complaint: Neuro-Stroke Like Symptoms Stated Complaint: CAN NOT LIFT R ARM Nursing Triage Note: PT CO OF WEAKNESS AND PAIN IN R ARM AND NECK STARTED THIS AM AT 0130, PT HAS NO OTHER SX AT THIS X. IN ROOM AND STROKE ACTIVIATION AT 0716 Nursing Sepsis Screen: No Definite Risk Source: patient Exam Limitations: no limitations History of Present Illness Date Seen by Provider: May 16, 2018 Time Seen by Provider: 07:07 Initial Comments This 68-year-old woman presents to the emergency room with complaints of right arm weakness and pain in the right neck and shoulder. Last known well time was 22:30 when she went to bed. Pain in the neck and shoulder started yesterday. Patient reports she awoke at 01:00 and found her right arm to be flaccid. She presumed that she slept on her arm wrong causing temporary paralysis from nerve compression. She went back to bed and woke again at 050:30. Symptoms were unchanged despite sleeping flat on her back. She still is unable to raise her arm at the shoulder. She has a history of thoracic compression fractures and osteoporosis. NIH stroke score is 2. Stroke activation was paged after initial exam. Patient is not a TPA candidate due to greater than 4.5 hours since last known well time. Patient is notably hypertensive on arrival. Patient reports she quit smoking on of this year. Patient initially presumed her pain was related to her osteoporosis and compression fractures. Allergies and Home Medications Allergies Coded Allergies: No Known Drug Allergies (Unverified , 05/16/18) Home Medications Acyclovir 400 Mg Tablet, 800 MG PO 5XD Prescribed by: BRIANNA DUBON on 05/17/18 1148 Amitriptyline HCl 25 Mg Tablet, 25 MG PO HS Prescribed by: BRIANNA DUBON on 05/17/18 1148 Aspirin 81 Mg Tablet., 81 MG PO DAILY Prescribed by: BRIANNA DUBON on 05/17/18 1148 Calcium Carbonate/Vitamin D3 1 Each Tablet, 1 TAB PO HS, (Reported) Hydrocodone Bit/Acetaminophen 1 Tab Tab, 1 TAB PO Q3H PRN for PAIN-MODERATE Prescribed by: BRIANNA DUBON on 05/17/18 1148 Teriparatide 600 Mcg/2.4 Ml Syr, 20 MCG SQ HS, (Reported) Patient Home Medication List Home Medication List Reviewed: Yes Review of Systems Review of Systems Constitutional: no symptoms reported Eyes: No Symptoms Reported Ears, Nose, Mouth, Throat: no symptoms reported Respiratory: no symptoms reported Cardiovascular: no symptoms reported Gastrointestinal: no symptoms reported Genitourinary: no symptoms reported Musculoskeletal: see HPI Skin: rash (right upper arm) Psychiatric/Neurological: See HPI Endocrine: No Symptoms Reported Hematologic/Lymphatic: No Symptoms Reported Past Gmulqdg-Mxuyip-Zlvnir Hx Patient Social History Alcohol Use: Denies Use Recreational Drug Use: No Smoking Status: Former Smoker Type Used: Cigarettes Former Smoker, Quit: Dec 17, 2019 Recent Foreign Travel: No Contact w/Someone Who Travel: No Recent Infectious Disease Expo: No Past Medical History Surgeries: Yes Eye Surgery (cataract removal) Respiratory: No Cardiac: Yes Hypertension Neurological: No : No Reproductive Disorders: No Genitourinary: No Gastrointestinal: No Musculoskeletal: Yes Osteoporosis, Fractures (thoracic compression fractures) Endocrine: No HEENT: No Cancer: No Psychosocial: No Physical Exam Vital Signs Vital Signs - First Documented 05/16/18 07:05 Temp 96.9 Pulse 87 Resp 14 B/P (MAP) 175/112 (133) Pulse Ox 97 Capillary Refill : Less Than 3 Seconds Height, Weight, BMI Height: 5'8.00" Weight: 130lbs. oz. 58.441957gr; BMI Method:Estimated General Appearance: WD/WN, no apparent distress HEENT: PERRL/EOMI, normal ENT inspection, pharynx normal Neck: normal inspection Respiratory: lungs clear, normal breath sounds, no respiratory distress, no accessory muscle use Cardiovascular: regular rate, rhythm, no edema, no murmur Gastrointestinal: normal bowel sounds, non tender, soft Extremities: normal inspection, no pedal edema Neurologic/Psychiatric: manager personal II-XII nml as tested, alert, normal mood/affect, oriented x 3, motor weakness (proximal right upper extremity weakness. Unable to lift her arm off the bed at the shoulder) Crainal Nerves: normal hearing, normal speech, PERRL Coordination/Gait: normal finger to nose (abnormal on the right due to weakness ), normal gait Motor/Sensory: no sensory deficit Skin: normal color, warm/dry, rash (vesicular rash on the right upper arm, small patch on the ventral surface of the forearm as well) Stroke NIH Stroke Scale Assessment Level of Consciousness: 0=Alert (0), Level of Consciousness-Questions: 0= Answers both month/age (0), LOC Commands: 0=Performs both tasks (0), Visual [place]: 0=No visual loss (0), Facial Movement (Facial Paresis): 0=Normal symmetrical mnt (0), Motor Function-Arms Right: 2=Some effort/gravity (2), Motor Function-Arms Left: 0=No drift (0), Motor Function-Legs Right: 0=No drift (0), Motor Function-Legs Left: 0=No drift (0), Limb Ataxia: 0=Absent (0), Best Language: 0=No aphasia (0), Dysarthria: 0=Normal (0), Extinction & Inattention: 0=No abnormality (0), Total: 2 Progress/Results/Core Measures Results/Orders Lab Results Laboratory Tests Test 05/16/18 07:17 05/16/18 07:24 05/16/18 09:34 05/16/18 10:46 Range/Units Glucometer 97 70-110 MG/DL White Blood Count 3.7 L 4.3-11.0 10^3/uL Red Blood Count 4.28 L 4.35-5.85 10^6/uL Hemoglobin 13.3 11.5-16.0 G/DL Hematocrit 40 35-52 % Mean Corpuscular Volume 93 80-99 FL Mean Corpuscular Hemoglobin 31 25-34 PG Mean Corpuscular Hemoglobin Concent 33 32-36 G/DL Red Cell Distribution Width 13.0 10.0-14.5 % Platelet Count 206 130-400 10^3/uL Mean Platelet Volume 9.1 7.4-10.4 FL Neutrophils (%) (Auto) 68 42-75 % Lymphocytes (%) (Auto) 19 12-44 % Monocytes (%) (Auto) 9 0-12 % Eosinophils (%) (Auto) 3 0-10 % Basophils (%) (Auto) 1 0-10 % Neutrophils # (Auto) 2.5 1.8-7.8 X 10^3 Lymphocytes # (Auto) 0.7 L 1.0-4.0 X 10^3 Monocytes # (Auto) 0.3 0.0-1.0 X 10^3 Eosinophils # (Auto) 0.1 0.0-0.3 10^3/uL Basophils # (Auto) 0.0 0.0-0.1 10^3/uL Prothrombin Time 13.0 12.2-14.7 SEC INR Comment 1.0 0.8-1.4 Activated Partial Thromboplast Time 31 24-35 SEC D-Dimer 0.82 H 0.00-0.49 UG/ML Sodium Level 140 135-145 MMOL/L Potassium Level 4.0 3.6-5.0 MMOL/L Chloride Level 103 98-107 MMOL/L Carbon Dioxide Level 23 21-32 MMOL/L Anion Gap 14 5-14 MMOL/L Blood Urea Nitrogen 17 7-18 MG/DL Creatinine 0.87 0.60-1.30 MG/DL Estimat Glomerular Filtration Rate > 60 BUN/Creatinine Ratio 20 Glucose Level 104 70-105 MG/DL Calcium Level 10.1 8.5-10.1 MG/DL Corrected Calcium 9.7 8.5-10.1 MG/DL Total Bilirubin 0.3 0.1-1.0 MG/DL Aspartate Amino Transf (AST/SGOT) 35 H 5-34 U/L Alanine Aminotransferase (ALT/SGPT) 31 0-55 U/L Alkaline Phosphatase 76 40-136 U/L Troponin I < 0.30 <0.30 NG/ML Total Protein 8.1 6.4-8.2 GM/DL Albumin 4.5 3.2-4.5 GM/DL Urine Color YELLOW Urine Clarity CLEAR Urine pH 7 5-9 Urine Specific [place] 1.010 L 1.016-1.022 Urine Protein 1+ H NEGATIVE Urine Glucose (UA) NEGATIVE NEGATIVE Urine Ketones NEGATIVE NEGATIVE Urine Nitrite NEGATIVE NEGATIVE Urine Bilirubin NEGATIVE NEGATIVE Urine Urobilinogen NORMAL NORMAL MG/DL Urine Leukocyte Esterase NEGATIVE NEGATIVE Urine RBC (Auto) 4+ H NEGATIVE Urine RBC 10-25 H /HPF Urine WBC NONE /HPF Urine Squamous Epithelial Cells RARE /HPF Urine Crystals NONE /LPF Urine Bacteria NEGATIVE /HPF Urine Casts PRESENT /LPF Urine Hyaline Casts 2-5 H /LPF Urine Mucus NEGATIVE /LPF Urine Culture Indicated NO Lab Scanned Report LAB Reports [id number] My Orders Orders - MELA FLORES MD Cbc With Automated Diff (05/16/18 07:23) Protime With Inr (05/16/18 07:23) Partial Thromboplastin Time (05/16/18 07:23) Comprehensive Metabolic Panel (05/16/18 07:23) Fibrin Degradation Products (05/16/18 07:23) Troponin I (05/16/18 07:23) Ua Culture If Indicated (05/16/18 07:23) Chest 1 View, Ap/Pa Only (05/16/18 07:23) Ekg Tracing (05/16/18 07:23) Nothing By Mouth (05/16/18 Lunch) Accucheck Stat ONCE (05/16/18 07:23) Saline Lock/Iv-Start (05/16/18 07:23) Saline Lock/Iv-Start (05/16/18 07:23) Vital Signs Stroke Patient Q15M (05/16/18 07:23) Ct Head Wo-R/O Stroke (05/16/18 07:23) O2 (05/16/18 07:23) Intake & Output 06,14,22 (05/16/18 07:23) Monitor-Rhythm Ecg Trace Only (05/16/18 07:23) Dysphagia Screening Tool (05/16/18 07:23) Lipid Panel (05/17/18 06:00) Ct Angio Head/Neck (05/16/18 07:23) Ct Cervical Spine Wo (05/16/18 07:34) Iohexol Injection (Omnipaque 350 Mg/Ml 1 (05/16/18 08:30) Ns (Ivpb) (Sodium Chloride 0.9%) (05/16/18 08:30) Fentanyl Injection (Sublimaze Injection (05/16/18 09:15) Fentanyl Injection (Sublimaze Injection (05/16/18 09:13) Aspirin Tablet (Aspirin Tablet) (05/16/18 10:45) Medications Given in ED Vital Signs/I&O 05/16/18 07:05 Temp 96.9 Pulse 87 Resp 14 B/P (MAP) 175/112 (133) Pulse Ox 97 Blood Pressure Mean: 133 iStat Bedside Lab Testing Sodium (Na): 140.00 Potassium (K): 3.90 Chloride (CI): 102.00 TCO2: 26.00 Glucose (Glu): 103.00 Urea Nitrogen (BUN)/Urea: 19.00 Creatinine (Crea): 8.00 Anion Gap*: 17.00 FSBG Bedside Testing Finger Stick Blood Glucose: 97 Blood Glucose Action Taken: REPORTED TO Progress Progress Note #1: Time: 07:57 Progress Note Patient is in CT scan at this time. It was noted at that time patient has a vesicular rash suggestive of shingles on the right upper arm. Patient is not a TPA candidate due to time lapsed from onset of symptoms. Progress Note #2: Progress Note CT scans were negative for cervical spine pathology and intracranial hemorrhage. There were no large vessel occlusions or stenosis on angiogram. There was an incidental finding of right internal carotid aneurysm without complication. Case was discussed with Dr. Whitney, [facility] stroke neurologist. He agrees patient is not a TPA candidate and not a candidate for CTP imaging. Patient seems to have 3 issues that are likely not related. She has shingles of the right upper extremity, right upper extremity weakness that seems to be independent of pain, and a right internal carotid aneurysm incidentally found on imaging. Dr. Whitney recommended admission for observation overnight with an MRI in the morning. He also recommended nerve conduction studies in 2-3 weeks if MRI is negative and symptoms persist. Graduated neurochecks have been ordered. Case has been discussed with Dr. Carrizales. Diagnostic Imaging Diagonstic Imaging: CT Plain Films/CT/US/NM/MRI: c-spine Comments CT cervical spine viewed by me and report reviewed. See report below: NAME: LEANNA FERNANDEZ [facility] REC#: [id number] PT STATUS: REG ER : 1950 PHYSICIAN: MELA FLORES MD ADMIT DATE: 05/16/18/ER Signed Date of Exam: 05/16/18 CT CERVICAL SPINE WO PROCEDURE: CT cervical spine without contrast. TECHNIQUE: Multiple contiguous axial images were obtained through the cervical spine without the use of intravenous contrast. Sagittal and coronal reformations were then performed. DATE: May 16, 2018. INDICATION: 68-year-old female, neck pain. Right-sided weakness. COMPARISON: None. FINDINGS: There is no facet joint subluxation or dislocation. There are mild to moderate left facet degenerative changes at C3-C4. There is no asymmetric widening of the cervical disc spaces. There is slight reversal of the normal cervical lordosis. There is no prominent prevertebral soft tissue swelling. There is no identified acute fracture of the cervical spine. The cervical disc heights appear well preserved. CT is limited for assessment of disc pathology as well as additional nonbony causes of foraminal and spinal stenosis. There are upper lobe changes of emphysema. IMPRESSION: 1. No identified acute abnormality of the cervical spine. 2. Mild to moderate left facet degenerative changes at C3-C4. Dictated by: Dictated on workstation # [id number] Dict: 05/16/18 0831 Trans: 05/16/18849 Interpreted by: BRIAN OREILLY MD Electronically signed by: BRIAN OREILLY MD 05/16/18849 Diagonstic Imaging: CT Plain Films/CT/US/NM/MRI: head Comments CT head viewed by me and report reviewed. See report below: NAME: LEANNA FERNANDEZ [employer] REC#: [id number] PT STATUS: REG ER : 1950 PHYSICIAN: MELA FLORES MD ADMIT DATE: 05/16/18/ER Signed Date of Exam: 05/16/18 CT HEAD WO-R/O STROKE PROCEDURE: CT head without contrast. TECHNIQUE: Multiple contiguous axial images were obtained through the brain without the use of intravenous contrast. DATE: May 16, 2018. COMPARISON: None. INDICATION: 68-year-old female, right-sided weakness. Evaluation for stroke. FINDINGS: The ventricles and cerebral spinal fluid spaces are of normal size and configuration for the patient's age. There is no mass effect or midline shift. There is no acute intracranial hemorrhage. There is no abnormal extra-axial fluid collection. The visualized portions of the paranasal sinuses, mastoid air cells and middle ears are well aerated. IMPRESSION: 1. No identified acute intracranial abnormality. Dictated by: Dictated on workstation # [id number] Dict: 05/16/18822 Trans: 05/16/18849 Interpreted by: BRIAN OREILLY MD Electronically signed by: BRIAN OREILLY MD 05/16/18849 Diagonstic Imaging: CT Plain Films/CT/US/NM/MRI: other (CT angiogram head and neck) Comments CT angiogram head and neck viewed by me and report reviewed. See report below: NAME: LEANNA FERNANDEZ [facility] REC#: [id number] PT STATUS: REG ER : 1950 PHYSICIAN: MELA FLORES MD ADMIT DATE: 05/16/18/ER Signed Date of Exam: 05/16/18 CT ANGIO HEAD/NECK PROCEDURE: CT angiography of the head and CT angiography of the neck with and without contrast. TECHNIQUE: Contiguous noncontrast images were obtained from the skull base through the vertex. After intravenous contrast administration, helical CT angiography of the neck was performed. Source data was reformatted into multiple MIP projections. Delayed post contrast acquisition was also obtained. DATE: May 16, 2018. INDICATION: 68-year-old female, right-sided weakness. Evaluation for stroke. COMPARISON: Same day CT head May 16, 2018. FINDINGS: There is no identified abnormal intracranial enhancement. The left common carotid artery is patent. The left internal carotid artery is patent and without high-grade stenosis. The left anterior cerebral artery is patent. The left middle cerebral artery is patent. The right anterior cerebral artery is patent. There is a patent anterior communicating artery. The right middle cerebral artery is patent. The right internal carotid artery is patent and without high-grade stenosis. The right common carotid artery is patent. There is conventional origin of the left vertebral artery. The left vertebral artery is patent. The basilar artery is patent. The right and left posterior cerebral arteries are patent. There is a patent right posterior communicating artery. The right and left posterior inferior cerebellar arteries are patent. The right vertebral artery is patent and also conventional in origin. There is an aneurysm arising from the supraclinoid segment of the right internal carotid artery measuring approximately 8 x 8 x 9 mm in size. There is no evidence of acute subarachnoid hemorrhage correlating with same day and recently performed CT head without contrast exam. There are changes of emphysema in the lung apices. Additional valuation of the visualized portions of the lungs is unremarkable. IMPRESSION: 1. 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 2. No high-grade vascular narrowing or occlusion. 3. Upper lobe changes of emphysema. Dictated by: Dictated on workstation # [id number] Dict: 05/16/18824 Trans: 05/16/1849 Interpreted by: BRIAN OREILLY MD Electronically signed by: BRIAN OREILLY MD 05/16/18 0849 Diagonstic Imaging: Xray Plain Films/CT/US/NM/MRI: chest Comments Chest x-ray viewed by me and report reviewed. See report below: NAME: LEANNA FERNANDEZ [facility] REC#: [id number] PT STATUS: REG ER : 1950 PHYSICIAN: MELA FLORES MD ADMIT DATE: 05/16/18/ER Signed Date of Exam: 05/16/18 CHEST 1 VIEW, AP/PA ONLY EXAMINATION: Chest radiograph, portable AP view. DATE: May 16, 2018 at 0806 hours. INDICATION: 68-year-old female, right-sided weakness. COMPARISON: Rib radiographs June 15, 2017. FINDINGS: Heart size and mediastinal contours are unremarkable. There is no identified pneumothorax. There is no large pleural effusion. There is no identified focal airspace consolidation. Right upper quadrant surgical clips likely relate to prior cholecystectomy. IMPRESSION: No identified acute cardiopulmonary abnormality. Dictated by: Dictated on workstation # [id number] Dict: 05/16/18818 Trans: 05/16/18847 Interpreted by: BRIAN OREILLY MD Electronically signed by: BRIAN OREILLY MD 05/16/1848 Departure Communication (Admissions) Time/Spoke to Admitting Phy: 10:35 Dr. Carrizales Impression Primary Impression: Right arm weakness Additional Impressions: Shingles Qualified Codes: B02.9 - Zoster without complications Carotid aneurysm, right Disposition: ADMITTED INPATIENT Condition: Improved Admissions Decision to Admit Reason: Admit from ER (General) Decision to Admit/Date: May 17, 2018 Time/Decision to Admit Time: 10:30 Departure-Patient Inst. Referrals: RESHMA DUARTE MD (PCP/Family) Primary Care Physician Scripts Amitriptyline HCl (Amitriptyline HCl) 25 Mg Tablet 25 MG PO HS, #30 TAB Prov: BRIANNA DUBON DO 05/17/18 Hydrocodone Bit/Acetaminophen (Hydrocodone/Acetaminophen 5/325mg Tablet) 1 Tab Tab 1 TAB PO Q3H PRN for PAIN-MODERATE, #30 TAB Prov: BRIANNA DUBON DO 05/17/18 Aspirin (Aspirin EC) 81 Mg Tablet.dr 81 MG PO DAILY, #30 TAB Prov: BRIANNA DUBON DO 05/17/18 Acyclovir (Acyclovir) 400 Mg Tablet 800 MG PO 5XD, #30 TAB Prov: BRIANNA DUBON DO 05/17/18 Copy Copies To 1: RESHMA DUARTE MD, JOSHUA T MD May 16, 2018 08:01
--- NOTE | 2018-05-16 08:21 | Diagnostic Imaging Report ---
EXAMINATION: Chest radiograph, portable AP view. DATE: May 16, 2018 at 0806 hours. INDICATION: 68-year-old female, right-sided weakness. COMPARISON: Rib radiographs June 15, 2017. FINDINGS: Heart size and mediastinal contours are unremarkable. There is no identified pneumothorax. There is no large pleural effusion. There is no identified focal airspace consolidation. Right upper quadrant surgical clips likely relate to prior cholecystectomy. IMPRESSION: No identified acute cardiopulmonary abnormality. Dictated by: Dictated on workstation # [id number]
[2018-05-16] MEDS ORDERED: IOHEXOL 350 MG/ML 100 ML (OMNIPAQUE 350) VIAL IV ONE (08:30)
[2018-05-16] MEDS ORDERED: NS 250 ML (IVPB) BAG IV ONE (08:30)
--- NOTE | 2018-05-16 08:36 | Diagnostic Imaging Report ---
PROCEDURE: CT head without contrast. TECHNIQUE: Multiple contiguous axial images were obtained through the brain without the use of intravenous contrast. DATE: May 16, 2018. COMPARISON: None. INDICATION: 68-year-old female, right-sided weakness. Evaluation for stroke. FINDINGS: The ventricles and cerebral spinal fluid spaces are of normal size and configuration for the patient's age. There is no mass effect or midline shift. There is no acute intracranial hemorrhage. There is no abnormal extra-axial fluid collection. The visualized portions of the paranasal sinuses, mastoid air cells and middle ears are well aerated. IMPRESSION: 1. No identified acute intracranial abnormality. Dictated by: Dictated on workstation # [id number]
--- NOTE | 2018-05-16 08:38 | Diagnostic Imaging Report ---
PROCEDURE: CT angiography of the head and CT angiography of the neck with and without contrast. TECHNIQUE: Contiguous noncontrast images were obtained from the skull base through the vertex. After intravenous contrast administration, helical CT angiography of the neck was performed. Source data was reformatted into multiple MIP projections. Delayed post contrast acquisition was also obtained. DATE: May 16, 2018. INDICATION: 68-year-old female, right-sided weakness. Evaluation for stroke. COMPARISON: Same day CT head May 16, 2018. FINDINGS: There is no identified abnormal intracranial enhancement. The left common carotid artery is patent. The left internal carotid artery is patent and without high-grade stenosis. The left anterior cerebral artery is patent. The left middle cerebral artery is patent. The right anterior cerebral artery is patent. There is a patent anterior communicating artery. The right middle cerebral artery is patent. The right internal carotid artery is patent and without high-grade stenosis. The right common carotid artery is patent. There is conventional origin of the left vertebral artery. The left vertebral artery is patent. The basilar artery is patent. The right and left posterior cerebral arteries are patent. There is a patent right posterior communicating artery. The right and left posterior inferior cerebellar arteries are patent. The right vertebral artery is patent and also conventional in origin. There is an aneurysm arising from the supraclinoid segment of the right internal carotid artery measuring approximately 8 x 8 x 9 mm in size. There is no evidence of acute subarachnoid hemorrhage correlating with same day and recently performed CT head without contrast exam. There are changes of emphysema in the lung apices. Additional valuation of the visualized portions of the lungs is unremarkable. IMPRESSION: 1. 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 2. No high-grade vascular narrowing or occlusion. 3. Upper lobe changes of emphysema. Dictated by: Dictated on workstation # [id number]
--- NOTE | 2018-05-16 08:40 | Diagnostic Imaging Report ---
PROCEDURE: CT cervical spine without contrast. TECHNIQUE: Multiple contiguous axial images were obtained through the cervical spine without the use of intravenous contrast. Sagittal and coronal reformations were then performed. DATE: May 16, 2018. INDICATION: 68-year-old female, neck pain. Right-sided weakness. COMPARISON: None. FINDINGS: There is no facet joint subluxation or dislocation. There are mild to moderate left facet degenerative changes at C3-C4. There is no asymmetric widening of the cervical disc spaces. There is slight reversal of the normal cervical lordosis. There is no prominent prevertebral soft tissue swelling. There is no identified acute fracture of the cervical spine. The cervical disc heights appear well preserved. CT is limited for assessment of disc pathology as well as additional nonbony causes of foraminal and spinal stenosis. There are upper lobe changes of emphysema. IMPRESSION: 1. No identified acute abnormality of the cervical spine. 2. Mild to moderate left facet degenerative changes at C3-C4. Dictated by: Dictated on workstation # [id number]
[2018-05-16] MEDS ORDERED: fentaNYL INJECTION 100 MCG/2 ML AMP ONE (09:13)
[2018-05-16] MEDS ORDERED: fentaNYL INJECTION 100 MCG/2 ML AMP IVP ONE (09:15)
[2018-05-16 09:49] LABS: BILIRUBIN,URINE NEGATIVE (NEGATIVE); CLARITY,URINE CLEAR; COLOR,URINE YELLOW; GLUCOSE, URINE (UA) NEGATIVE (NEGATIVE); KETONES,URINE NEGATIVE (NEGATIVE); LEUKOCYTE ESTERASE ,URINE NEGATIVE (NEGATIVE); NITRITE,URINE NEGATIVE (NEGATIVE); PH,URINE 7 (5-9); PROTEIN,URINE 1+ (NEGATIVE); UROBILINOGEN,URINE NORMAL (NORMAL)
[2018-05-16 09:56] LABS: BACTERIA,URINE NEGATIVE /HPF; SQUAMOUS EPITHELIAL CELL,UR RARE /HPF
[2018-05-16] MEDS ORDERED: ASPIRIN 325 MG (5 GR) TABLET PO ONE (10:45)
--- NOTE | 2018-05-16 11:00 | NUR ---
REPORT RECEIVED FROM FLORI AGUILERA FROM ED. THIS RN WILL AWAIT PATIENTS ARRIVAL TO ROOM 411.
[2018-05-16 11:50] VITALS: BP 145/69
--- NOTE | 2018-05-16 11:50 | NUR ---
LEANNA FERNANDEZ admitted to room 411-1, with an admitting diagnosis of RIGHT ARM WEAKNESS, SHINGLES, on 05/16/18 from ED via WHEELCHAIR, accompanied by STAFF. LEANNA FERNANDEZ introduced to surroundings, call light, bed controls, phone, TV, temperature control, lights, meal times, smoking policy, visitor policy, side rail policy, bathrooms and showers. Patient Rights given to patient in the handbook. LEANNA FERNANDEZ verbalizes understanding that [facility] is not responsible for the loss or damage to any personal effects or valuables that are kept in the patients possession during their hospitalization. LEANNA FERNANDEZ verbalizes understanding of Interdisciplinary Patient Education. Patient WAS informed about the Rapid Response Team and its purpose.
[2018-05-16] MEDS: HYDROcodone/APAP 5 MG/325 MG (LORTAB) TAB PO PRN ×4 (12:55→23:39)
[2018-05-16] MEDS: ACYCLOVIR 400 MG TABLET (ZOVIRAX) PO SCH ×3 (12:55→20:44)
[2018-05-16 13:00] VITALS: BP 148/77
[2018-05-16 13:59] VITALS: BP 126/64
[2018-05-16] MEDS ORDERED: TERI202.4P SQ (14:23)
[2018-05-16] MEDS ORDERED: CALC-140 PO (14:23)
[2018-05-16 14:55] VITALS: BP 136/68
--- NOTE | 2018-05-16 15:34 | History & Physicial (CHS) ---
HPI History of Present Illness: This is a 68 yo female, pt of Dr. Carmen who presented to ED with complaints of R shoulder weakness. Pt reports she started noticing a pain to the R shoulder yesterday, felt like the pain was "deep". Over night she began having weakness in the shoulder but thought she had slept on it wrong. When she awoke this am she was unable to raise her R arm at the shoulder. She denies weakness in her hand or elbow and is able to use the lower part of her arm but is unable to raise her arm at the shoulder. She also noted lesions over the R shoulder and arm but reports a hx of psoriasis and thought they were related to psoriasis. Pt denies lower extremity weakness, difficulty speaking or any other symptoms. No prior similar symptoms. Source: patient Exam Limitations: no limitations Date seen by provider: May 16, 2018 Time Seen by Provider: 12:00 Attending Physician Adolph Eagle DO PCP Cassy Carmen MD Consult Date of Admission May 16, 2018 at 10:46 Home Medications Home Medications Reviewed patient Home Medication Reconciliation performed by pharmacy medication reconciliations training technician and/or nursing. Patients Allergies have been reviewed. Allergies Coded Allergies: No Known Drug Allergies (Unverified , 05/16/18) [id number] Hx Patient Social History Alcohol Use: Denies Use Recreational Drug Use: No Smoking Status: Former Smoker Type Used: Cigarettes Recent Foreign Travel: No Contact w/other who traveled: No Recent Hopitalizations: No Recent Infectious Disease Expo: No Physical Abuse Screen: No Sexual Abuse: No Immunizations Up To Date Date of Pneumonia Vaccine: Feb 15, 2018 Date of Influenza Vaccine: Feb 15, 2018 Past Medical History Osteoporosis Hypertension Hyperlipidemia GERD hx of vertebral fracture Family Medical History Family History: FH: breast cancer 19 MOTHER, FH: lung cancer 19 FATHER, Gastroenteritis Review of Systems ([facility]) Constitutional: see HPI Reviewed Test Results Reviewed Test Results Lab Laboratory Tests 05/16/18 07:17: Glucometer 97 05/16/18 07:24: White Blood Count 3.7L, Red Blood Count 4.28L, Hemoglobin 13.3, Hematocrit 40, Mean Corpuscular Volume 93, Mean Corpuscular Hemoglobin 31, Mean Corpuscular Hemoglobin Concent 33, Red Cell Distribution Width 13.0, Platelet Count 206, Mean Platelet Volume 9.1, Neutrophils (%) (Auto) 68, Lymphocytes (%) (Auto) 19, Monocytes (%) (Auto) 9, Eosinophils (%) (Auto) 3, Basophils (%) (Auto) 1, Neutrophils # (Auto) 2.5, Lymphocytes # (Auto) 0.7L, Monocytes # (Auto) 0.3, Eosinophils # (Auto) 0.1, Basophils # (Auto) 0.0, Prothrombin Time 13.0, INR Comment 1.0, Activated Partial Thromboplast Time 31, D-Dimer 0.82H, Sodium Level 140, Potassium Level 4.0, Chloride Level 103, Carbon Dioxide Level 23, Anion Gap 14, Blood Urea Nitrogen 17, Creatinine 0.87, Estimat Glomerular Filtration Rate > 60, BUN/Creatinine Ratio 20, Glucose Level 104, Calcium Level 10.1, Corrected Calcium 9.7, Total Bilirubin 0.3, Aspartate Amino Transf (AST/ SGOT) 35H, Alanine Aminotransferase (ALT/SGPT) 31, Alkaline Phosphatase 76, Troponin I < 0.30, Total Protein 8.1, Albumin 4.5 05/16/18 09:34: Urine Color YELLOW, Urine Clarity CLEAR, Urine pH 7, Urine Specific [place] 1.010L, Urine Protein 1+H, Urine Glucose (UA) NEGATIVE, Urine Ketones NEGATIVE, Urine Nitrite NEGATIVE, Urine Bilirubin NEGATIVE, Urine Urobilinogen NORMAL, Urine Leukocyte Esterase NEGATIVE, Urine RBC (Auto) 4+H, Urine RBC 10-25H, Urine WBC NONE, Urine Squamous Epithelial Cells RARE, Urine Crystals NONE, Urine Bacteria NEGATIVE, Urine Casts PRESENT, Urine Hyaline Casts 2-5H, Urine Mucus NEGATIVE, Urine Culture Indicated NO Radiology ADMIT DATE: 05/16/18/ER Signed Date of Exam: 05/16/18 CT ANGIO HEAD/NECK PROCEDURE: CT angiography of the head and CT angiography of the neck with and without contrast. TECHNIQUE: Contiguous noncontrast images were obtained from the skull base through the vertex. After intravenous contrast administration, helical CT angiography of the neck was performed. Source data was reformatted into multiple MIP projections. Delayed post contrast acquisition was also obtained. DATE: May 16, 2018. INDICATION: 68-year-old female, right-sided weakness. Evaluation for stroke. COMPARISON: Same day CT head May 16, 2018. FINDINGS: There is no identified abnormal intracranial enhancement. The left common carotid artery is patent. The left internal carotid artery is patent and without high-grade stenosis. The left anterior cerebral artery is patent. The left middle cerebral artery is patent. The right anterior cerebral artery is patent. There is a patent anterior communicating artery. The right middle cerebral artery is patent. The right internal carotid artery is patent and without high-grade stenosis. The right common carotid artery is patent. There is conventional origin of the left vertebral artery. The left vertebral artery is patent. The basilar artery is patent. The right and left posterior cerebral arteries are patent. There is a patent right posterior communicating artery. The right and left posterior inferior cerebellar arteries are patent. The right vertebral artery is patent and also conventional in origin. There is an aneurysm arising from the supraclinoid segment of the right internal carotid artery measuring approximately 8 x 8 x 9 mm in size. There is no evidence of acute subarachnoid hemorrhage correlating with same day and recently performed CT head without contrast exam. There are changes of emphysema in the lung apices. Additional valuation of the visualized portions of the lungs is unremarkable. IMPRESSION: 1. 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 2. No high-grade vascular narrowing or occlusion. 3. Upper lobe changes of emphysema. Physical Exam-([facility]) Physical Exam Vital Signs VS - Last 72 Hours, by Label 05/16/18 05/16/18 05/16/18 05/16/18 07:05 11:48 11:50 13:00 Temp 96.9 98.6 98.0 Pulse 87 76 76 92 Resp 14 14 16 16 B/P (MAP) 175/112 (133) 152/88 (109) 145/69 (94) 148/77 (100) Pulse Ox 97 97 95 97 O2 Delivery Room Air Room Air 05/16/18 05/16/18 05/16/18 13:22 13:59 14:55 Temp 98.2 97.8 Pulse 97 89 78 Resp 16 16 B/P (MAP) 126/64 (84) 136/68 (90) Pulse Ox 94 95 O2 Delivery Room Air Room Air Capillary Refill : Less Than 3 Seconds General Appearance: WD/WN, no apparent distress HEENT: PERRL/EOMI Respiratory: lungs clear, normal breath sounds, no respiratory distress, no accessory muscle use Cardiovascular: regular rate, rhythm Neurologic/Psychiatric: 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 R shoulder weakness 2. Shingles R upper extremity 3. Carotid aneurysm - incidental CT finding Admission Status: Observation Reason for Inpatient Admission: 1. R shoulder weakness 2. Shingles R upper extremity 3. Carotid aneurysm - incidental CT finding Assessment & Plan 1. R shoulder weakness - no evidence of acute stroke and physical exam not consistent with cerebral ischemia - Dr. Murillo discussed case with [employer] manager of business operations Neurologist who recommended pt be admitted for Obs and obtain MRI in the am - possible atypical presentation of zoster as weakness was preceded by pain consistent with shingles and consistent skin lesions now present; peripheral motor neuropathy with weakness can result from reactivation of zoster (3% of cases) - will trial steroids, may need PT as OP 2. Shingles R upper extremity - UE lesions consistent with shingles - started on acyvlovir and will start amitriptyline for pain 3. Carotid aneurysm - incidental CT finding - 8x8x9 mm Clinical Quality Measures DVT/VTE Risk/Contraindication: Risk Factor Score Per Nursin RFS Level Per Nursing on Admit: 3=High ADOLPH EAGLE DO May 16, 2018 15:34
[2018-05-16 16:00] VITALS: BP 154/73
[2018-05-16] MEDS ORDERED: PATIENT MAY USE OWN MEDS, ALL MC SCH (16:15)
[2018-05-16] MEDS: predniSONE 20 MG TAB PO SCH (16:23)
[2018-05-16 20:00] VITALS: BP 150/73
[2018-05-16] MEDS ORDERED: TERIPARATIDE 600 MCG/2.4 ML (FORTEO) SYR SQ SCH (21:00)
[2018-05-16] MEDS ORDERED: CALCIUM CARB + VIT D 600 MG (CALCARB + D) TAB PO SCH (21:00)
[2018-05-16] MEDS ORDERED: AMITRIPTYLINE 25 MG (ELAVIL) TAB PO SCH (21:00)
[2018-05-17 00:01] VITALS: BP 143/78
[2018-05-17 04:03] VITALS: BP 131/60
[2018-05-17 06:12] LABS: CHOLESTEROL 174 MG/DL (< 200); HDL CHOLESTEROL 72 MG/DL (40-60); TRIGLYCERIDES 59 MG/DL (<150); VLDL CHOLESTEROL 12 MG/DL (5-40)
[2018-05-17] MEDS: HYDROcodone/APAP 5 MG/325 MG (LORTAB) TAB PO PRN ×3 (06:46→15:39)
[2018-05-17] MEDS: ACYCLOVIR 400 MG TABLET (ZOVIRAX) PO SCH ×3 (06:46→14:25)
[2018-05-17 08:00] VITALS: BP 150/77
[2018-05-17] MEDS ORDERED: ASPIRIN E.C. 81 MG (ECOTRIN) TAB PO SCH (09:00)
[2018-05-17] MEDS: predniSONE 20 MG TAB PO SCH (09:09)
--- NOTE | 2018-05-17 10:51 | Physical Therapy Evaluation ---
PT Evaluation-General Medical Diagnosis Admission Date May 16, 2018 at 10:46 Medical Diagnosis: right UE weakness/shingles Onset Date: May 16, 2018 Therapy Diagnosis Therapy Diagnosis: debility Height/Weight Height (Feet): 5 Height (Inches): 6.00 Weight (Pounds): 128 Weight (Ounces): 4.0 Precautions Precautions/Isolations: Contact Isolation, Standard Precautions Referral Physician: All Reason for Referral: Evaluation/Treatment Medical History Pertinent Medical History: HTN Current History ED with neuro like symptoms/right UE weakness Reviewed History: Yes Social History Home: Single Level Current Living Status: Spouse Prior/Core FIM Prior Level of Function Therapy Code Descriptions/Definitions Functional [place] Measure: 0=Not Assessed/NA 4=Minimal Assistance 1=Total Assistance 5=Supervision or Setup 2=Maximal Assistance 6=Modified [place] 3=Moderate Assistance 7=Complete [place] Therapy Quality Codes: 6 Independent with activity with or without an assistive device 5 Patient requires set up or clean up by helper. Patient completes activity by themselves 4 Supervision or touching assist (CGA). [place] provide cues , steadying assist 3 The helper provides less than half the effort to complete the activity 2 The helper provides more than half the effort to complete the activity 1 Dependent. The helper does all the effort to complete an activity 7 Patient refused to complete or attempt activity 9 The patient did not perform the activity before the current illness or injury 88 Not attempted due to Medical conditions or safety concerns Functional Abilities and Goals: Independent: Patient completed the activities by him/herself, with or without an assistive device, with no assistance from a helper. Needed Some Help: Patient needed partial assistance from another person to complete activities. Dependent: A helper completed the activities for the patient. Unknown: Not Applicable: Bed Mobility: 7 Transfers (B,C,W/C) (FIM): 7 Gait: 7 Stairs: 7 Indoor Mobility (Ambulation): Independent Stairs: Independent Prior Devices Use: None PT Evaluation-Current Subjective Patient is up independent in room and hallway. Pain Numeric Pain Scale: 5-Moderate Pain Location: Right Location Body Site: Shoulder Pain Description: Acute Objective Patient Orientation: Normal For Age Problem Solving: Good ROM/Strength ROM Upper Extremities right shoulder PROM by patient WFL/AROM limited shoulder flexion and abduction ROM Lower Extremities bilateral LE WFL Strength Lower Extremities bilateral LE 5/5 grossly Integumentary/Posture Integumentary refer to nursing notes Bowel Incontinence: No Bladder Incontinence: No Posture WFL Neuromuscular (Tone, Coordination, Reflexes) grossly intact Sensory Vision: Functional Hearing: Functional Sensation Right Lower Extremit: Intact Sensation Left Lower Extremity: Intact Transfers Therapy Code Descriptions/Definitions Functional [place] Measure: 0=Not Assessed/NA 4=Minimal Assistance 1=Total Assistance 5=Supervision or Setup 2=Maximal Assistance 6=Modified [place] 3=Moderate Assistance 7=Complete [place] Transfers (B, C, W/C) (FIM): 7 Scootin Rollin Supine to/from Sit: 7 Sit to/from Stand: 7 Gait Mode of Locomotion: Walk Anticipated Mode of Locomotion: Walk Gait (FIM): 7 Distance (FIM): 3=150 ft Distance: >300' Gait Level of Assist: 7 Gait Assistive Device: None Balance Sitting Static: Normal Sitting Dynamic: Normal Standing Static: Normal Standing Dynamic: Normal Assessment/Needs 68 y.o. female, is currently at independent [facility] with all gross motor skills and does not require skilled therapy intervention. Review of AAROM right shoulder with use of left UE is independent. Rehab Potential: Good PT Plan Treatment/Plan Treatment Plan: Discontinue PT, goals met Treatment Plan: Other Treatment Duration: May 17, 2018 Frequency: 1 time per week Estimated Hrs Per Day: .25 hour per day Patient and/or Family Agrees t: Yes Discharge Recommendations Therapy D/C Recommendations: Home Independently, Physical Therapy Outpatient Time/GCodes Time In: 1005 Time Out: 1015 Total Billed Treatment Time: 10 Total Billed Treatment 1 visit EVLowC 10 min G Codes Necessary: Yes PT/OT Therapy GCodes Therapy Functional Limitation: Physical Therapy Test(s)/Tool used to determine: Level of Assistance Scale Functional Limitation-Current Charge Code: MOBCUR Modifier: CH Functional Limitation-Goal Charge Code: MOBGOAL Modifier: CH Functional Limitation-D/C Charge Codes: MOBDC Modifier: CH GAYE CABALLERO PT May 17, 2018 10:51
[2018-05-17] MEDS ORDERED: ASPI-983 PO (11:48)
[2018-05-17] MEDS ORDERED: AMIT25TA9 PO (11:48)
[2018-05-17] MEDS ORDERED: ACYC400T PO (11:48)
[2018-05-17] MEDS ORDERED: ACHD5005 PO (11:48)
--- NOTE | 2018-05-17 11:50 | Discharge Summary-Hospitalist ---
Diagnosis/Chief Complaint Date of Admission May 16, 2018 at 10:46 Date of Discharge Discharge Date: May 17, 2018 Discharge Diagnosis (1) Right arm weakness Status: Acute (2) Shingles Status: Acute (3) Carotid aneurysm, right Status: Acute Discharge Summary Discharge Physical Exam Allergies: Coded Allergies: No Known Drug Allergies (Unverified , 05/16/18) Vitals & I&Os Vital Signs Date Time Temp Pulse Resp B/P (MAP) Pulse Ox O2 Delivery O2 Flow Rate FiO2 05/17/18 12:48 76 05/17/18 12:00 98.2 16 154/80 (104) 95 Room Air General Appearance: No Apparent Distress, WD/WN, Chronically ill, Thin Respiratory: Chest Non Tender, Lungs Clear, Normal Breath Sounds, No Accessory Muscle Use, No Respiratory Distress Cardiovascular: Regular Rate, Rhythm, No Edema, No Gallop, No JVD, No Murmur, Normal Peripheral Pulses Neurologic/Psychiatric: Alert, Oriented x3, No Motor/Sensory Deficits, Normal Mood/Affect, Motor Weakness (Right arm) Hospital Course This is a 68-year-old white female [facility] patient with a past medical history of osteoporosis who presented to the ER with right arm weakness found to have acute shingles placed on acyclovir that CT neck revealed cervical stenosis so MRI will be obtained of the brain and cervical spine to rule out stroke versus stenosis with radiculopathy. CT angiogram of the neck showed carotid artery aneurysm that will be evaluated as an outpatient. Patient requested a small amount of pain medication for the shingles pain and understands the need to complete acyclovir treatment. Labs (last 24 hrs) Laboratory Tests 05/17/18 05:40: Triglycerides Level 59, Cholesterol Level 174, LDL Cholesterol Direct 82, VLDL Cholesterol 12, HDL Cholesterol 72H Patient resulted labs reviewed. Pending Labs Discussion & Recommendations Discharge Planning: <30 minutes discharge planning Discharge Home Medications: Active Scripts Active Amitriptyline HCl 25 Mg Tablet 25 Mg PO HS Hydrocodone/Acetaminophen 5/325mg Tablet (Acetaminophen/Hydrocodone Bitart) 1 Tab Tab 1 Tab PO Q3H PRN Aspirin EC (Aspirin) 81 Mg Tablet. 81 Mg PO DAILY Acyclovir 400 Mg Tablet 800 Mg PO 5XD Reported Forteo (Teriparatide) 600 Mcg/2.4 Ml Syr 20 Mcg SQ HS Calcium + Vitamin D Tablet (Calcium Carbonate/Vitamin D3) 1 Each Tablet 1 Tab PO HS Instructions to patient/family Please see electronic discharge instructions given to patient. Clinical Quality Measures DVT/VTE Risk/Contraindication: Risk Factor Score Per Nursin RFS Level Per Nursing on Admit: 3=High Problem Qualifiers (1) Shingles: Herpes zoster complications: without complications Qualified Codes: B02.9 - Zoster without complications BRIANNA DUBON DO May 17, 2018 11:49
[2018-05-17 12:00] VITALS: BP 154/80
--- NOTE | 2018-05-17 13:03 | NUR ---
Initial visit: pt demonstrates positive attitude, sense of forgiveness and self worth, strength of yuri, and strong connections with God and her family. 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 Pt requested prayer and expressed appreciation flight hostess visiting.
[2018-05-17] MEDS ORDERED: GADOBUTROL 7.5 MMOL/7.5 ML (GADAVIST) VIAL IV ONE (14:00)
--- NOTE | 2018-05-17 14:06 | Diagnostic Imaging Report ---
PROCEDURE: MR imaging cervical spine without contrast. TECHNIQUE: Multiplanar, multisequence MR imaging of the cervical spine was performed without contrast. INDICATION: Right arm weakness. FINDINGS: Cervical spinal cord has a normal volume, a normal morphology and a normal signal intensity. CSF circumscribes the cord at each vertebral body and disc space level. Cervical vertebral statures normal. Body heights maintained. Marrow signal intensity normal. Ligamentous structures intact. The craniocervical relationship, the C1-C2, the C2-C3 and the C3-C4 levels and discs were normal. C4-5: There is mild desiccation of the disc with circumferential bulge but no resultant canal or foraminal stenosis. C5-6: Disc desiccation and mild annular bulge with minimal endplate osteophytes are present. Osteophyte disc material somewhat greater left than right with a mild degree of left foraminal stenosis. C6-C7: Disc bulge is asymmetric to the left with mild left foraminal stenosis. The right foramen and spinal canal patent. C7-T1: This level and disc appeared normal. IMPRESSION: Disc bulges with multilevel mild foraminal stenosis. No substantial canal narrowing. Normal cord. Normal alignment. No acute bony abnormality. Dictated by: Dictated on workstation # [id number]
--- NOTE | 2018-05-17 14:55 | Diagnostic Imaging Report ---
PROCEDURE: MR imaging of the brain with and without contrast. TECHNIQUE: Multiplanar, multisequence MR imaging of the brain was performed with and without contrast. INDICATION: Right-sided weakness. FINDINGS: There are no previous MRI examinations available for comparison. The CTA head and neck exam of 05/16/2018 did note an 8 x 8 x 9 mm aneurysm arising from the supraclinoid segment of the right internal carotid artery. On this exam, the aneurysm is again identified and does not appear to have changed significantly. The left internal carotid artery is unremarkable. There is no mass, shift of the midline, or hemorrhage to indicate an acute abnormality. There is no abnormal signal arising from the brain on the diffusion series to indicate an area of acute ischemia either. Furthermore, post contrast images are unremarkable for any abnormal enhancement that would indicate a neoplastic or infectious process. The ventricles are not abnormally dilated. There is no abnormal signal arising from the periventricular white matter on the FLAIR series to indicate demyelinating disease. There is mild cortical atrophy present. The degree of atrophy is consistent with the patient's age. The orbits are symmetrical and within normal limits. The sella is not enlarged. There is mild mucosal thickening of the sphenoid sinus on the right. The sinuses are otherwise generally clear. The seventh and eighth nerve complexes are unremarkable. IMPRESSION: 1. There is no evidence for an acute intracranial abnormality. In particular, there is no sign of an area of acute ischemia. 2. The aneurysm involving the supraclinoid portion of the right internal carotid artery seen previously is again evident and no different. 3. There is no abnormal enhancement to suggest a neoplastic or infectious process. Dictated by: Dictated on workstation # [id number]
== END 2018-05-17 15:03 | disposition home or self-care (01) ==
LOC: EDUNIT# 07:05 → ER 07:06 → UNDOADMOB 10:46 → 4TH 10:46 → UNDODISOB 05-17 15:53
PROVIDERS: ADMIT Family Medicine; ATTEND Family Medicine
DX: R29.898 Other symptoms and signs involving the musculoskeletal system (principal); B02.9 Zoster without complications; M48.02 Spinal stenosis, cervical region; I10 Essential (primary) hypertension; M81.0 Age-related osteoporosis without current pathological fracture; I67.1 Cerebral aneurysm, nonruptured; E78.5 Hyperlipidemia, unspecified; K21.9 Gastro-esophageal reflux disease without esophagitis; Z79.899 Other long term (current) drug therapy; Z79.82 Long term (current) use of aspirin; Z87.891 Personal history of nicotine dependence
CPT/HCPCS: 36415; 70450; 70496; 70498; 70553; 71045; 72125; 72141; 80053; 80061; 81000; 82962; 84484; 85025; 85379; 85610; 85730; 93041; G0378

== ENCOUNTER 2018-06-03 10:30 | Emergency (ER) | payer MEDICARE ==
[~2018-06-03] VITALS: Ht 167.6 cm; Wt 59.0 kg
[~2018-06-03 10:30] MED LIST: ACHD5005 PO; ACYC400T PO; AMIT25TA9 PO; ASPI-983 PO; CALC-140 PO; FLU180SY11; TERI202.4P SQ
[2018-06-03] MEDS ORDERED: HYDROcodone/APAP 5 MG/325 MG (LORTAB) TAB PO ONE (11:00)
--- NOTE | 2018-06-03 11:13 | ED General ---
General Chief Complaint: General Problems/Pain Stated Complaint: RIGHT ARM PAIN;NUMBNESS Nursing Triage Note: PT AMB TO ROOM #7 W/O DIFFICULTY. A&OX4. C/O RT ARM PAIN AND NUMBNESS. REPORTS PAIN WHEN ATTEMPTING TO LIFT RT ARM AND UPON MOVEMENT. PT STATES, "IF FEELS LIKE I HAVE BEEN SHOT WITH NOVOCAINE IN THE TIP OF MY SHOULDER TOO." RASH NOTED TO DISTAL RT SHOULDER RUNNING DISTAL TO INNER RT UPPER ARM. PT REPORTS RASH IS NOT A NEW OCCURANCE AND STATES, "THATS OLD, ITS BEEN THERE FOR A WHILE." PT REPORTS SHE WAS DIAGNOSED WITH SHINGLES. PT REPORTS PAIN IS KEEPING HER FROM BEING ABLE TO SLEEP @ NOC. Nursing Sepsis Screen: No Definite Risk Source of Information: Patient Exam Limitations: No Limitations History of Present Illness Date Seen by Provider: Jun 03, 2018 Time Seen by Provider: 10:50 Initial Comments 68 year old female who presents to the emergency room with complains of a burning pain to the left shoulder area. Has had shingles to the area in the past month. Pain is worse when she moves the arm. There is area or reddened blotchy area on the outer aspect of the left arm. Timing/Duration: 2-3 Days Associated Systoms: Denies Symptoms Allergies and Home Medications Allergies Coded Allergies: No Known Drug Allergies (Unverified , 05/16/18) Home Medications Acyclovir 400 Mg Tablet, 800 MG PO 5XD Prescribed by: BRIANNA DUBON on 05/17/18 1148 Acyclovir 800 Mg Tablet, 800 MG PO 5XD Prescribed by: JOSELUIS CAVAZOS on 06/03/18 1213 Amitriptyline HCl 25 Mg Tablet, 25 MG PO HS Prescribed by: BRIANNA DUBON on 05/17/18 1148 Aspirin 81 Mg Tablet.dr, 81 MG PO DAILY Prescribed by: BRIANNA DUBON on 05/17/18 1148 Calcium Carbonate/Vitamin D3 1 Each Tablet, 1 TAB PO HS, (Reported) Hydrocodone Bit/Acetaminophen 1 Tab Tab, 1 TAB PO Q3H PRN for PAIN-MODERATE Prescribed by: BRIANNA DUBON on 05/17/18 1148 Hydrocodone Bit/Acetaminophen 1 Tab Tab, 1 EACH PO Q4-6HR PRN for PAIN-MODERATE Prescribed by: JOSELUIS CAVAZOS on 06/03/18 1213 Prednisone 20 Mg Tab, 40 MG PO DAILY Prescribed by: JOSELUIS CAVAZOS on 06/03/18 1213 Teriparatide 600 Mcg/2.4 Ml Syr, 20 MCG SQ HS, (Reported) Patient Home Medication List Home Medication List Reviewed: Yes Review of Systems Review of Systems Constitutional: no symptoms reported, see HPI Skin: see HPI, change in color Psychiatric/Neurological: See HPI, Numbness, Tingling All Other Systems Reviewed Negative Unless Noted: Yes Past Krxkwfb-Alezip-Avzwhr Hx Past Med/Social Hx: Reviewed Nursing Past Med/Soc Hx Patient Social History Type Used: Cigarettes Former Smoker, Quit: Jan 18, 2018 Recent Foreign Travel: No Contact w/Someone Who Travel: No Recent Infectious Disease Expo: No Recent Hopitalizations: No Immunizations Up To Date PED Vaccines UTD: No Date of Pneumonia Vaccine: Feb 15, 2018 Date of Influenza Vaccine: Feb 15, 2018 Seasonal Allergies Seasonal Allergies: Yes (HAYFEVER) Past Medical History Surgeries: Yes Eye Surgery Respiratory: No Cardiac: No Hypertension Neurological: No Reproductive Disorders: No Genitourinary: No Gastrointestinal: No Musculoskeletal: Yes Osteoporosis, Arthritis, Chronic Back Pain Endocrine: No HEENT: Yes (BILAT CATARACT REMOVED 2016) Cataract Cancer: No Psychosocial: No Integumentary: Yes Psoriasis Blood Disorders: No Family Medical History Reviewed Nursing Family Hx FH: breast cancer 19 MOTHER, FH: lung cancer 19 FATHER, Gastroenteritis Physical Exam Vital Signs Vital Signs - First Documented 06/03/18 10:49 Temp 97.5 Pulse 80 Resp 16 B/P (MAP) 186/103 (130) Pulse Ox 98 O2 Delivery Room Air Capillary Refill : Less Than 3 Seconds Height, Weight, BMI Height: 5'6.00" Weight: 130lbs. 4.0oz. [id number]; 20.7 BMI Method:Stated General Appearance: No Apparent Distress, WD/WN Respiratory: Chest Non Tender, Lungs Clear, Normal Breath Sounds, No Accessory Muscle Use, No Respiratory Distress Cardiovascular: Regular Rate, Rhythm, No Edema, No Gallop, No JVD, No Murmur, Normal Peripheral Pulses Extremity: Normal Capillary Refill, Normal Inspection, Normal Range of Motion, Non Tender, No Calf Tenderness, No Pedal Edema Neurologic/Psychiatric: Alert, Oriented x3, Normal Mood/Affect Skin: Normal Color, Warm/Dry Comments reddened area to the outer aspect of the right shoulder. I suspect that this is an area of shingles that is going to erupt. Progress/Results/Core Measures Suspected Sepsis Recent Fever Within 48 Hours: No Infection Criteria Present: None New/Unexplained Altered Menta: No Sepsis Screen: No Definite Risk SIRS Temperature:97.5 Pulse: 80 Respiratory Rate: 16 Blood Pressure 186 /103 Mean: 130 Results/Orders My Orders Orders - JOSELUIS CAVAZOS Hydrocodone/Apap 5/325 Tablet (Lortab 5 (06/03/18 11:00) Shoulder, Right, 3 Views (06/03/18 10:59) Medications Given in ED Vital Signs/I&O Capillary Refill : Less Than 3 Seconds Blood Pressure Mean: 130 Progress Note : Time: 12:00 Progress Note I have seen and evaluated the patient. I have informed her of her imaging studies. She agrees with plan of care and plans for discharge. I will be treating her for shingles outbreak. Diagnostic Imaging Diagonstic Imaging: Xray Plain Films/CT/US/NM/MRI: other (shoulder) Comments NAME: LEANNA FERNANDEZ [facility] REC#: [id number] PHYSICIAN: JOSELUIS CAVAZOS CC: JOSELUIS CAVAZOS; JAIME TRAMMELL MD Page 1 of 1 RADIOLOGY REPORT [facility] [place] CC: JOSELUIS CAVAZOS; JAIME TRAMMELL MD Page 1 of 1 RADIOLOGY REPORT NAME: LEANNA FERNANDEZ [facility] REC#: [id number] PT STATUS: DEP ER : 1950 PHYSICIAN: JOSELUIS CAVAZOS ADMIT DATE: 06/03/18/ER Signed Date of Exam: 06/03/18 SHOULDER, RIGHT, 3 VIEWS INDICATION: Right arm pain and numbness. TIME OF EXAMINATION: 12:04 p.m. EXAMINATION: Three views of right shoulder were obtained. FINDINGS: Glenohumeral and acromioclavicular alignment are normal. Acromiohumeral space is normal. No fracture or dislocation is seen. IMPRESSION: No acute bony abnormality is detected. Dictated by: Dictated on workstation # [id number] Dict: 06/03/18 1144 Trans: 06/03/18 1556 Interpreted by: JAIME TRAMMELL MD Electronically signed by: JAIME TRAMMELL MD 06/03/18 1556 Reviewed: Reviewed by Me Departure Impression Primary Impression: Shingles outbreak Disposition: HOME, SELF-CARE Condition: Stable/Unchanged Departure-Patient Inst. Decision time for Depature: 12:10 Referrals: RESHMA DUARTE MD (PCP/Family) Primary Care Physician Patient Instructions: Sridevi (DC) Add. Discharge Instructions: Take medications as directed. Follow-up with your primary care provider within 1 week for recheck. Continue all home medications as prescribed. Return back to the emergency room for any worsening symptoms or concerns as needed. All discharge instructions reviewed with patient and/or family. Voiced understanding. Scripts Acyclovir (Acyclovir) 800 Mg Tablet 800 MG PO 5XD, #35 TAB Prov: JOSELUIS CAVAZOS 06/03/18 Prednisone (Prednisone) 20 Mg Tab 40 MG PO DAILY, #10 TAB Prov: JOSELUIS CAVAZOS 06/03/18 Hydrocodone Bit/Acetaminophen (Hydrocodone/Acetaminophen 5/325mg Tablet) 1 Tab Tab 1 EACH PO Q4-6HR PRN for PAIN-MODERATE MDD 10, #20 TAB Prov: JOSELUIS CAVAZOS 06/03/18 JOSELUIS CAVAZOS Jun 03, 2018 11:13
--- NOTE | 2018-06-03 11:50 | Diagnostic Imaging Report ---
INDICATION: Right arm pain and numbness. TIME OF EXAMINATION: 12:04 p.m. EXAMINATION: Three views of right shoulder were obtained. FINDINGS: Glenohumeral and acromioclavicular alignment are normal. Acromiohumeral space is normal. No fracture or dislocation is seen. IMPRESSION: No acute bony abnormality is detected. Dictated by: Dictated on workstation # [id number]
[2018-06-03] MEDS ORDERED: PRD20T PO (12:13)
[2018-06-03] MEDS ORDERED: ACYC800T PO (12:13)
[2018-06-03] MEDS ORDERED: ACHD5005 PO (12:13)
[2018-06-03 12:16] VITALS: BP 140/104
== END 2018-06-03 12:16 | disposition home or self-care (01) ==
LOC: EDUNIT# 10:30 → ER 10:32
DX: B02.9 Zoster without complications (principal); I10 Essential (primary) hypertension; M81.0 Age-related osteoporosis without current pathological fracture; Z79.82 Long term (current) use of aspirin; Z79.52 Long term (current) use of systemic steroids; Z80.3 Family history of malignant neoplasm of breast; Z80.1 Family history of malignant neoplasm of trachea, bronchus and lung; Z87.891 Personal history of nicotine dependence
CPT/HCPCS: 73030

== ENCOUNTER → 2019-05-31 | Outpatient (CLI) | payer MEDICARE, OTHER ==
[~2019-05-31] MED LIST changes: +ACYC800T PO; +PRD20T PO
--- NOTE | 2019-05-31 10:11 | Diagnostic Imaging Report ---
INDICATION: Screening for osteoporosis COMPARISON: 05/28/2017 FINDINGS: The bone density hips and spine was measured. The study was compared to the prior exam of 05/28/2017. The T score for the spine is -4.4. On the prior exam the T score is -5.0. The total T score for the left hip is -2.9, for the right hip -3.0. On the prior exam the total T score for each hip was -3.3. The T score for the left femoral neck is -2.6 and for the right femoral neck -3.0. On the prior exam the respective T-scores are -2.7and -3.0. AP Spine L1-L4: [BMD (g/cm2): .670] [T-Score: -4.4] [Z-Score: -2.6] [BMD Previous: 0.606] [BMD % Change: 10.6] LT Hip Neck: [BMD (g/cm2): 0.679] [T-Score: -2.6] [Z-Score: -0.9] LT Hip Total: [BMD (g/cm2):0.636] [T-Score:-2.9] [Z-Score: -1.5] [BMD Previous: .587] [BMD % Change: 8.3] RT Hip Neck: [BMD (g/cm2):0.619] [T-Score:-3.0] [Z-Score:-1.3] RT Hip Total: [BMD (g/cm2):0.624] [T-score:-3.0] [Z-Score:-1.6] [BMD Previous:0.593] [BMD % Change:5.2] *Indicates significant change from prior examination based on 95% confidence level. World Health Organization criteria for BMD interpretation classify patients as Normal (T-score at or above -1.0), Osteopenic (T-score between -1.0 and -2.5) or Osteoporotic (T-score at or below -2.5). LIMITATIONS AND MODIFICATION: None. FRACTURE RISK (FRAX SCORE): The ten year probability of (%): Major Osteoporotic Fracture: [NA] Hip Fracture: [NA] IMPRESSION: 1. The bone marrow density of the hips and spine has increased somewhat since the prior study. However all the values still indicate osteoporosis. See below National Osteoporosis Foundation guidelines on when to potentially initiate pharmacologic therapy. Based on the National Osteoporosis Foundation Guidelines, pharmacologic treatment should be initiated in any of the following, unless clinical conditions suggest otherwise: * Any patient with prior fragility fracture of the hip or vertebrae. A spine fracture indicates 5X risk for subsequent spine fracture and 2X risk for subsequent hip fracture. * Osteoporosis (T-score <-2.5). * Postmenopausal women and men age 50 and older with low bone mass/osteopenia (T-score between -1.0 and -2.5) by DXA and 10-year major osteoporotic fracture greater than 20% or a 10-year probability of hip fracture greater than 3%. These fracture risks are supplied above in the FRAX score, if applicable. * Clinician judgement and/or patient preferences may indicate treatment for people with 10-year fracture probabilities above or below these levels. Dictated by: Dictated on workstation # [id number]
== END ==
LOC: RAD 08:30
PROVIDERS: ATTEND Pediatrics
DX: Z13.820 Encounter for screening for osteoporosis (principal); M81.0 Age-related osteoporosis without current pathological fracture; Z78.0 Asymptomatic menopausal state
CPT/HCPCS: 77080

== ENCOUNTER → 2021-10-15 | Outpatient (CLI) | payer MEDICARE ==
[~2021-10-15] MED LIST changes: +ACYC-112 PO; -ACYC400T PO; +ACYC400T21 PO; -ACYC800T PO; +ASPI-1238 PO; -ASPI-983 PO
--- NOTE | 2021-10-15 11:18 | Diagnostic Imaging Report ---
Technique: Multiplanar and multisequence MRI of the thoracic spine is performed without contrast. COMPARISON: 06/15/2017. Reason for exam: Mid thoracic back pain. History of prior T-spine fractures. FINDINGS: No acute fracture or dislocation is seen in the thoracic spine. There is chronic height loss at the T5, T6, T7, and T8 vertebral bodies. No associated bone marrow edema is seen at these levels. No focal osseous lesions are identified in the thoracic spine. There is mild focal kyphosis in the midthoracic spine. The intrinsic signal within the thoracic spinal cord is normal. No evidence of cord expansion. No epidural collections. Degenerative changes are seen in the thoracic spine with facet hypertrophy and marginal osteophytes. No significant spinal canal stenosis is seen in the thoracic spine. There is bilateral moderate foraminal stenosis at the T7-T8 and T8-T9 levels. There is also moderate left foraminal stenosis at T10-T11. The paraspinal soft tissues are unremarkable. Included lungs are clear. IMPRESSION: 1. No acute fracture or dislocation in the thoracic spine. 2. Chronic height loss from the T5-T8 levels. No associated bone marrow edema is seen. 3. Degenerative changes in the thoracic spine with foraminal stenosis at T7-T8, T8-T9, and T10-T11. No significant spinal canal stenosis. Dictated by: Dictated on workstation # [id number]
== END ==
LOC: RAD 09:42
PROVIDERS: ATTEND Pediatrics
DX: M47.814 Spondylosis without myelopathy or radiculopathy, thoracic region (principal); M48.04 Spinal stenosis, thoracic region
CPT/HCPCS: 72146

== ENCOUNTER → 2022-09-09 | Outpatient (CLI) | payer MEDICARE ==
--- NOTE | 2022-09-09 14:26 | Diagnostic Imaging Report ---
INDICATION: Postmenopausal state. COMPARISON: 05/31/2019. FINDINGS: AP Spine L1-L4: [BMD (g/cm2): 0.648] [T-Score: -4.6] [Z-Score: -2.4] [BMD Previous: 0.670] [BMD % Change: -3.3] LT Hip Neck: [BMD (g/cm2): 0.653] [T-Score: -2.8] [Z-Score: -0.7] LT Hip Total: [BMD (g/cm2):0.616] [T-Score:-3.1] [Z-Score: -1.3] [BMD Previous: 0.636] [BMD % Change: -3.1] RT Hip Neck: [BMD (g/cm2):0.651] [T-Score:-2.8] [Z-Score:-0.8] RT Hip Total: [BMD (g/cm2):0.647] [T-score:-2.9] [Z-Score:-1.0] [BMD Previous:0.624] [BMD % Change:3.7] *Indicates significant change from prior examination based on 95% confidence level. World Health Organization criteria for BMD interpretation classify patients as Normal (T-score at or above -1.0), Osteopenic (T-score between -1.0 and -2.5) or Osteoporotic (T-score at or below -2.5). LIMITATIONS AND MODIFICATION: None. FRACTURE RISK (FRAX SCORE): The ten year probability of (%): Major Osteoporotic Fracture: [21.9] Hip Fracture: [7.1] IMPRESSION: 1. Osteoporosis. 2. No significant change in bone mineral density since prior examination. 3. See below National Osteoporosis Foundation guidelines on when to potentially initiate pharmacologic therapy. Based on the National Osteoporosis Foundation Guidelines, pharmacologic treatment should be initiated in any of the following, unless clinical conditions suggest otherwise: * Any patient with prior fragility fracture of the hip or vertebrae. A spine fracture indicates 5X risk for subsequent spine fracture and 2X risk for subsequent hip fracture. * Osteoporosis (T-score <-2.5). * Postmenopausal women and men age 50 and older with low bone mass/osteopenia (T-score between -1.0 and -2.5) by DXA and 10-year major osteoporotic fracture greater than 20% or a 10-year probability of hip fracture greater than 3%. These fracture risks are supplied above in the FRAX score, if applicable. * Clinician judgement and/or patient preferences may indicate treatment for people with 10-year fracture probabilities above or below these levels. Dictated by: Dictated on workstation # [id number]
== END ==
LOC: RAD 10:41
PROVIDERS: ATTEND Pediatrics
DX: M81.0 Age-related osteoporosis without current pathological fracture (principal); Z78.0 Asymptomatic menopausal state
CPT/HCPCS: 77080